=== PATIENT | male | born 1945 | race Caucasian/White ===

== ENCOUNTER 2020-04-10 10:10 | Emergency (ER) | payer MEDICARE, SELFPAY ==
[2020-04-10] VITALS (16 sets, daily range): BP systolic 98–124; BP diastolic 59–88; PULSE 57–62; RESP 12–28; TEMP 36.4; O2SAT 86–100
--- NOTE | ~2020-04-10 | XR_ITS ---
XR chest 1V portable DATE: 04/10/2020 10:52 INDICATION: Shortness of breath, cough, sore throat, body aches. Hypertension. TECHNIQUE: Portable AP chest on April 10, 2020 at 1042 hours COMPARISON: None FINDINGS: Heart size is normal. No hilar or mediastinal enlargement. No pulmonary vascular congestion or pleural effusion or pneumothorax. The lungs are clear of infiltrate or consolidation. IMPRESSION: No active cardiopulmonary disease Reviewed, dictated and finalized at location A. E CALLER
[2020-04-10 10:42] LABS: Basophils Percent Auto 0.3 % (0.2-1.2); Eosinophils Absolute Auto 0.1 K/mm3 (0-0.3); Eosinophils Percent Auto 0.7 % (0-4.4); Hematocrit 45.9 % (42.0-52.0); Hemoglobin 16.1 g/dL (14.0-18.0); Immature Granulocyte Absolute 0.06 K/mm3 (0.00-0.031); Immature Granulocyte Percent A 0.9 % (0-0.5); Lymphocytes Absolute Auto 0.89 K/mm3 (0.9-3.2); Lymphocytes Percent Auto 12.8 % (18.3-44.2); Mean Corpuscular HGB Conc 35.1 g/dl (32-36); Mean Corpuscular Hemoglobin 33.2 pg (26-34); Mean Corpuscular Volume 94.6 fl (80-100); Mean Platelet Volume 8.6 fl (7.4-10.4); Monocytes Absolute Auto 0.6 K/mm3 (0.1-0.6); Monocytes Percent Auto 8.5 % (2.6-8.5); Neutrophils Absolute Auto 5.4 K/mm3 (1.3-6.7); Neutrophils Percent Auto 76.8 % (45.5-73.1); Platelet Count Result 120 k/mm3 (150-375); Red Blood Count 4.85 M/mm3 (4.6-6.20); Red Cell Distribution Width 13.6 % (11.5-14.5)
[2020-04-10 11:01] LABS: Anion Gap 7 mmol/L (8-16); Blood Urea Nitrogen 34 mg/dL (9-20); Calcium 9.3 mg/dL (8.4-10.2); Carbon Dioxide 36 mmol/L (22-30); Chloride 92 mmol/L (98-107); Estimated CRCL calculation 31 ml/min; Estimated Glomerular Filt Rate 33; Glucose 166 mg/dL (75-110); Sodium 135 mmol/L (137-145)
--- NOTE | 2020-04-10 11:11 | ED.GENADULT ---
HPI - General Adult General Chief complaint: Upper Respiratory Infection <Nathan Llanes PA-C - Last Filed: 04/10/20 13:44> Stated complaint: SOB <Nathan Llanes PA-C - Last Filed: 04/10/20 13:44> Time Seen by Provider: 04/10/20 10:11 <Nathan Llanes PA-C - Last Filed: 04/10/20 13:44> Source: patient <Nathan Llanes PA-C - Last Filed: 04/10/20 13:44> Mode of arrival: ambulatory <Nathan Llanes PA-C - Last Filed: 04/10/20 13:44> Limitations: no limitations <Nathan Llanes PA-C - Last Filed: 04/10/20 13:44> History of Present Illness HPI narrative: Patient is a 74-year-old male who presents with multiple complaints over the last 4 days to include congestion cough that is nonproductive feeling more short of breath with activity and fatigue also noting that he has several days of diarrhea. Patient denies sick contacts. On arrival patient denies any pain. Patient denies fever vomiting rectal bleeding or melena or chest pain. Patient denies similar occurrence in the past <Ntahan Llanes PA-C - Last Filed: 04/10/20 13:44> Related Data Home medications: Home Medications Medication Instructions Recorded Confirmed hydrochlorothiazide 25 mg PO DAILY 04/10/20 04/10/20 losartan 100 mg PO DAILY 04/10/20 04/10/20 <Nathan Llanes PA-C - Last Filed: 04/10/20 13:44> Allergies/adverse reactions: Allergies Allergy/AdvReac Type Severity Reaction Status Date / Time formaldehyde Allergy Unknown Verified 04/10/20 10:17 Grass Allergy Unknown Rash Uncoded 04/10/20 10:17 <Nathan Llanes PA-C - Last Filed: 04/10/20 13:44> Review of Systems Review of Systems: All systems reviewed & are unremarkable except as noted in HPI and below <Nathan Llanes PA-C - Last Filed: 04/10/20 13:44> PMFSH Past Medical History Medical History: Medical History Allergies Atopic dermatitis CKD (chronic kidney disease) Deviated septum Hernia Hypertension Postherpetic neuralgia Shingles Type 2 diabetes mellitus <Nathan Llanes PA-C - Last Filed: 04/10/20 13:44> Surgical History Surgical History: Surgical History History of mandibular surgery 2012 <Nathan Llanes PA-C - Last Filed: 04/10/20 13:44> Family History Family History: Family History (Updated 04/07/19 @ 16:38 by Kiarra Knapp [facility]) Sibling Tonsil cancer Father Alcoholism <Nathan Llanes PA-C - Last Filed: 04/10/20 13:44> Social History Social History: Social History Smoking status: Former smoker Alcohol intake: never Gender identity (if verbalized by the patient): Male <Nathan Llanes PA-C - Last Filed: 04/10/20 13:44> Exam Narrative: Exam Narrative: GENERAL: Well-appearing, well-nourished, and in no acute distress. HEAD: Normocephalic, atraumatic. EYES: PERRLA and EOMI. ENT: Nares clear, no rhinorrhea or epistaxis. Mucous membranes moist. CHEST: Clear to auscultation. No respiratory distress. No wheezes rales or rhonchi HEART: Regular rate and rhythm. No murmur heard. Normal peripheral pulses. ABDOMEN: Soft, nontender, distended EXTREMITIES: Normal range of motion. No edema. SKIN: Warm, dry, no rash. NEURO: No focal deficits. Alert and oriented x3. Cranial nerves II through XII grossly intact PSYCH: Normal mood and affect. <Nathan Llanes PA-C - Last Filed: 04/10/20 13:44> Course Course Emergency Course: Patient evaluated in the emergency department for what is described as URI symptoms, patient was evaluated without any high risk changes in the blood work or imaging no pneumonia no hypoxemia was evaluated for pulmonary embolus acute coronary syndrome heart failure none of these appear to be the etiology of the patient's dyspnea and fatigue it is felt like the pat
[2020-04-10 11:17] LABS: INR 0.9; Prothrombin Time 12.3 Seconds (11.1-14.7)
[2020-04-10 11:18] LABS: Partial Thromboplastin Time 32.5 SECONDS (22.3-36.8)
[2020-04-10 11:20] LABS: D Dimer 0.32 ug/mL (<0.48)
[2020-04-10 11:43] LABS: Add Urine Microscopic? YES; Appearance Urine Clear (Clear); Bilirubin Urine Negative (Negative); Blood Urine Negative (Negative); Color Urine Yellow (Yellow); Glucose Urine UA 1+ mg/dL (Negative); Ketones Urine Negative (Negative); Leukocyte Esterase Ur Negative LEU/UL (Negative); Mucus Urine Rare /lpf; Nitrate Urine Negative (Negative); Protein Urine 1+ mg/dL (Negative); RBC Urine 0-2 /hpf (0-2); Specific Grav Ur 1.028 (1.001-1.035); Squamous Epithelial Cell Urine Rare /hpf (Few); Urobilinogen Urine Negative mg/dL (<2.0)
[2020-04-10 11:43] LABS: Lactic Acid Reflex 1.9 mmol/L (0.7-2.1)
[2020-04-10 11:46] LABS: CRP 4.3 mg/dL (<1.0)
[2020-04-10 11:56] LABS: NT Pro B Type Natriuretic Pept 298 PG/ML (5-100)
[2020-04-10 21:22] LABS: SARS-CoV-2 RNA PCR Positive
== END 2020-04-10 14:07 | disposition home or self-care (01) ==
PROVIDERS: Emergency Medicine Emergency Medical Services; Emergency Provider General Practice; PCP Internal Medicine
DX: U07.1 COVID-19 (principal); J06.9 Acute upper respiratory infection, unspecified; E11.22 Type 2 diabetes mellitus with diabetic chronic kidney disease; I12.9 Hypertensive chronic kidney disease with stage 1 through stage 4 chronic kidney disease, or unspecified chronic kidney disease; N18.9 Chronic kidney disease, unspecified; Z87.891 Personal history of nicotine dependence; R00.1 Bradycardia, unspecified; I44.4 Left anterior fascicular block; R94.31 Abnormal electrocardiogram [ECG] [EKG]
CPT/HCPCS: 36415; 71045; 80048; 81001; 83605; 83880; 84484; 85025; 85380; 85610; 85730; 86140; 87081; 87804; 87880; 93005; 99283; C9803; U0003; U0005

== ENCOUNTER 2020-04-13 11:55 | Inpatient (IN) | payer MEDICARE, SELFPAY ==
[2020-04-13] VITALS (11 sets, daily range): BP systolic 108–141; BP diastolic 66–81; PULSE 69–88; RESP 16–28; TEMP 36.6–37; O2SAT 93–96; BMI 28.6
--- NOTE | ~2020-04-13 | XR_ITS ---
EXAMINATION: XR chest 1V portable DATE: 04/13/2020 12:30 INDICATION: Shortness of breath and cough TECHNIQUE: frontal view of the chest was obtained. COMPARISON: Chest radiograph dated 04/10/2020 FINDINGS: Subtle patchy airspace opacities in the right suprahilar and infrahilar regions. Left lung remains cl ear. No pleural effusion or pneumothorax. The cardiomediastinal silhouette is normal. Mild degenerati ve skeletal changes in the thoracic spine and bilateral shoulders. IMPRESSION: 1. New subtle patchy opacities in the right suprahilar and infrahilar regions which could represent p neumonia or less likely asymmetric mild pulmonary edema. Reviewed, dictated and finalized at location A. BER WORKER IMPRESSION: 1. New subtle patchy opacities in the right suprahilar and infrahilar regions w hich could represent pneumonia or less likely asymmetric mild pulmonary edema.
--- NOTE | ~2020-04-13 | US_ITS ---
EXAMINATION: US venous doppler [facility] DATE: 04/18/2020 11:17 INDICATION: Shortness of breath. COVID positive. Elevated d-dimer. TECHNIQUE: Grayscale ultrasound images without and with compression and Doppler ultrasound images of the bilateral lower extremity veins were obtained. COMPARISON: None. FINDINGS: The visualized portions of right common femoral vein, profunda (deep) femoral vein, femoral vein, pop liteal vein, posterior tibial veins, peroneal veins, gastrocnemius vein and greater saphenous vein ou tflow are patent. The visualized portions of left common femoral vein, profunda femoral vein, femoral vein, popliteal v ein, posterior tibial veins, peroneal veins, gastrocnemius vein and greater saphenous vein outflow ar e patent. IMPRESSION: 1. No deep venous thrombosis in either lower limb. Reviewed, dictated and finalized at location A. GIVER
--- NOTE | 2020-04-13 12:03 | ECG_ITS ---
Measurements Intervals [place] Rate: 91 P: 19 [place]: 184 QRS: -51 QRSD: 96 T: -1 QT: 287 QTc: 354 Interpretive Statements SINUS RHYTHM LEFT ANTERIOR FASCICULAR BLOCK BORDERLINE T WAVE ABNORMALITY- INFERIOR LEADS BASELINE WANDER- I, AVR, V3-V5 ABNORMAL ECG Electronically Signed On 04-13-2020 13:12:39 MAILING MACHINE HELPER by Orlando Carcamo D.O.
[2020-04-13] MEDS: DEXAMETHASONE SOD PHOS INJ 4 MG/ML VIAL 6 MG IV PUSH (12:41)
[2020-04-13 12:45] LABS: Basophils Percent Auto 0.2 % (0.2-1.2); Hematocrit 39.8 % (42.0-52.0); Hemoglobin 14.4 g/dL (14.0-18.0); Immature Granulocyte Absolute 0.07 K/mm3 (0.00-0.031); Immature Granulocyte Percent A 0.8 % (0-0.5); Lymphocytes Absolute Auto 0.35 K/mm3 (0.9-3.2); Lymphocytes Percent Auto 4.1 % (18.3-44.2); Mean Corpuscular HGB Conc 36.2 g/dl (32-36); Mean Corpuscular Hemoglobin 33.3 pg (26-34); Mean Corpuscular Volume 91.9 fl (80-100); Mean Platelet Volume 8.7 fl (7.4-10.4); Monocytes Absolute Auto 0.2 K/mm3 (0.1-0.6); Monocytes Percent Auto 2.4 % (2.6-8.5); Neutrophils Percent Auto 92.5 % (45.5-73.1); Platelet Count Result 121 k/mm3 (150-375); Red Blood Count 4.33 M/mm3 (4.6-6.20); Red Cell Distribution Width 13.2 % (11.5-14.5); White Blood Count 8.6 K/mm3 (4.5-10.0)
[2020-04-13 13:07] LABS: Alanine Aminotransferase 33 U/L (4-50); Albumin Level 3.4 g/dL (3.5-5.1); Alkaline Phosphatase 43 U/L (38-126); Anion Gap 5 mmol/L (8-16); Aspartate Amino Transferase 47 U/L (17-59); Bilirubin,Total 1.3 mg/dL (0.2-1.3); Blood Urea Nitrogen 27 mg/dL (9-20); Calcium 8.9 mg/dL (8.4-10.2); Carbon Dioxide 33 mmol/L (22-30); Chloride 89 mmol/L (98-107); Estimated CRCL calculation 35 ml/min; Estimated Glomerular Filt Rate 37; Glucose 205 mg/dL (75-110); Potassium 2.7 mmol/L (3.4-5.0); Sodium 127 mmol/L (137-145)
[2020-04-13 13:12] LABS: Troponin I 0.062 ng/mL (0.000-0.034)
--- NOTE | 2020-04-13 14:26 | ED.SOB ---
HPI - SOB/Dyspnea General Chief Complaint: Shortness of Breath/Dyspnea Stated Complaint: SOB, COVID + Time Seen by Provider: 04/13/20 12:04 History of Present Illness HPI Narrative: Patient is a 74-year-old male who presents ER with increased shortness of breath. Patient began to feel bad about 6 days ago. He was seen 3 days ago and swabbed for Covid. It came back positive. He has been increasingly short of breath at home and his home pulse oximeter showed that he has been having O2 readings in the 80s. Reports extreme fatigue. Has cough when he tries to take a deep breath. He has been on no medications at home. EMS gave him Solu-Medrol in route. Related Data Home Medications Medication Instructions Recorded Confirmed hydrochlorothiazide 25 mg PO DAILY 04/10/20 04/13/20 losartan 100 mg PO DAILY 04/10/20 04/13/20 Allergies Allergy/AdvReac Type Severity Reaction Status Date / Time formaldehyde Allergy Unknown Verified 04/13/20 12:15 Grass Allergy Unknown Rash Uncoded 04/13/20 12:15 Review of Systems Review of Systems: All systems reviewed & are unremarkable except as noted in HPI and below Constitutional: Constitutional: Denies chills, Reports fatigue, Denies fever(s) and Reports weakness ENT: Denies nasal congestion and Denies sore throat Cardiovascular: Cardiovascular: Denies chest pain, Denies rapid heart rate and Denies radiating jaw, neck or arm pain Respiratory: Respiratory: Reports cough, Reports dyspnea and Reports wheezing Gastrointestinal: Gastrointestinal: Denies abdominal pain, Denies nausea and Denies vomiting Musculoskeletal: Musculoskeletal: Denies back pain and Denies muscle cramps PMF Past Medical History Medical History Allergies Atopic dermatitis CKD (chronic kidney disease) Deviated septum Hernia Hypertension Postherpetic neuralgia Shingles Type 2 diabetes mellitus Surgical History Surgical History History of mandibular surgery 2012 Family History Family History (Updated 04/07/19 @ 16:38 by Kiarra Knapp [facility]) Sibling Tonsil cancer Father Alcoholism Social History Social History Smoking status: Former smoker Alcohol intake: never Gender identity (if verbalized by the patient): Male Exam Narrative: Exam Narrative: GENERAL: Well-appearing, well-nourished, and in no acute distress. HEAD: Normocephalic, atraumatic. CHEST: Clear to auscultation. No respiratory distress. Frequent coughing. HEART: Regular rate and rhythm. Normal peripheral pulses. ABDOMEN: Soft, nontender, nondistended. EXTREMITIES: Normal range of motion. No edema. SKIN: Warm, dry, no rash. NEURO: Alert and oriented x3. PSYCH: Normal mood and affect. Course Course Emergency Course: Admit to hospitalist service for hypoxia and Covid. Evidence of Covid pneumonia on chest x-ray. Patient given dexamethasone. Potassium infusion started for hypokalemia. Vital Signs Vital signs: Vital Signs Temperature 98.4 F 04/13/20 12:09 Pulse Rate 88 04/13/20 12:09 Respiratory Rate 24 H 04/13/20 12:09 Blood Pressure 108/79 04/13/20 12:09 Pulse Oximetry 95 04/13/20 12:09 Temperature 98.4 F 04/13/20 12:09 Pulse Rate 69 04/13/20 16:22 Respiratory Rate 20 04/13/20 16:22 Blood Pressure 132/74 04/13/20 16:22 Pulse Oximetry 96 04/13/20 16:22 MDM - SOB/Dyspnea Lab Data Result diagrams: 04/13/20 12:39 04/13/20 12:39 Labs: Lab Results 04/13/20 04/13/20 Range/Units 12:39 12:39 WBC 8.6 (4.5-10.0) K/mm3 RBC 4.33 L (4.6-6.20) M/mm3 Hgb 14.4 (14.0-18.0) g/dL Hct 39.8 L (42.0-52.0) % MCV 91.9 (80-100) fl MCH 33.3 (26-34) pg MCHC 36.2 H (32-36) g/dl RDW 13.2 (11.5-14.5) % Plt Count 121 L (150-375) k/mm3 MPV 8.7 (7.4-10.4) fl
--- NOTE | 2020-04-13 17:07 | ADMGEN ---
This patient, Lennox Calvo, was admitted to Intensive Care Unit-6. Patient/family oriented to hospital policies and general routines including ID bracelet, bed and alarms, visiting hours, pain management, procedures, bathroom and other care routines, personal items, smoking policy, room service/diet, and visiting hours. Information on how to activate the Rapid Response Team has been discussed. Patient/Family are encouraged to report perceived risks to care and to ask questions if they do not understand what they are told or what they should do.
[2020-04-13] MEDS: SODIUM CHLORIDE 0.9% IV 1,000 ML 125 ML IV CONT (18:18)
--- NOTE | 2020-04-13 18:24 | ADMIMU ---
This patient, Lennox Calvo, was admitted to IMU status, and placed in Intensive Care Unit-6. Patient/family oriented to hospital policies and general routines including ID bracelet, bed and alarms, visiting hours, pain management, procedures, bathroom and other care routines, personal items, smoking policy, room service/diet, and visiting hours. Valuables list has been completed. Information on how to activate the Rapid Response Team has been discussed. Patient/Family are encouraged to report perceived risks to care and to ask questions if they do not understand what they are told or what they should do.
[2020-04-13 21:44] LABS: Glucose Point of Care 334 (65-105)
[2020-04-13] MEDS: CALCIUM CARBONATE (TUMS) 500 MG (200 MG ELEMENTAL) PO (22:19)
[2020-04-13] MEDS: INSULIN ASPART (*BKC) 100 UNITS/ML 6 UNITS SUB-Q (22:19)
--- NOTE | 2020-04-13 23:19 | PM.IMHP ---
H&P: HPI History of Present Illness Date/Time: 04/13/20 23:19 Chief Complaint: shortness of breath Narrative: This is a 74 year old Diabetic male with known history of chronic HTN and CKD who presented to the hospital with a complaint of worsening shortness of breath. The patient states that he has had COVID-19 symptoms for almost two weeks now. At home he has had increased exertional shortness of breath and has a nonproductive cough. He denies any chest pain, fevers, chills, headache, wheezing, abdominal pain, dysuria, hematuria, nausea, vomiting, or rectal bleeding. The patient was evaluated in the ER today was placed on supplemental oxygen despite not being hypoxic. Apparently he had pulse oximetry readings in the 80s at home. The patient was also incidentally found to have a mildly elevated troponin of 0.062. Routine labs also showed a mild potassium of 2.7. He has his potassium replaced in the ER. The patient was admitted to the hospital for further care. He states that he feels much better now. No other complaints. Review of Systems Review of Systems: All systems reviewed & are unremarkable except as noted in HPI and below PMFSH Past Medical History Medical History Allergies Atopic dermatitis CKD (chronic kidney disease) Deviated septum Hernia Hypertension Postherpetic neuralgia Shingles Type 2 diabetes mellitus Surgical History Surgical History History of mandibular surgery 2012 Family History Family History Sibling Tonsil cancer Father Alcoholism Social History Social History Smoking status: Former smoker Tobacco type: cigarettes Alcohol intake: never Substance use: never Substance use type: does not use Gender identity (if verbalized by the patient): Male Sexual Orientation (if Verbalized by the Patient): Straight or Heterosexual Spiritual care concerns: No Meds Home Medications and Allergies Home Medications Medication Instructions Recorded Confirmed Type atenolol 25 mg tablet 25 mg PO DAILY #90 tablet 01/27/20 04/13/20 Rx albuterol sulfate 2 puff INHALATION QID PRN #6.7 g 04/10/20 04/13/20 Rx famotidine [Pepcid] 20 mg PO BID #14 tablet 04/10/20 04/13/20 Rx fluticasone furoate [Flonase 2 spray INTRANASAL DAILY #5.9 ml 04/10/20 04/13/20 Rx Sensimist] hydrochlorothiazide 25 mg PO DAILY 04/10/20 04/13/20 History loratadine [Claritin] 10 mg PO DAILY PRN #10 tablet 04/10/20 04/13/20 Rx losartan 100 mg PO DAILY 04/10/20 04/13/20 History Allergies Allergy/AdvReac Type Severity Reaction Status Date / Time formaldehyde Allergy Unknown Verified 04/13/20 12:15 Grass Allergy Unknown Rash Uncoded 04/13/20 12:15 Vital Signs Vital Signs - 24 hr 04/13/20 12:09 04/13/20 12:43 04/13/20 13:21 Temperature 36.9 C Pulse Rate 88 86 78 Respiratory Rate 24 H 26 H 28 H Blood Pressure 108/79 126/66 141/74 H Pulse Oximetry 95 96 94 04/13/20 14:14 04/13/20 14:45 04/13/20 15:30 Temperature Pulse Rate 79 72 76 Respiratory Rate 26 H 16 18 Blood Pressure 127/74 128/74 131/81 Pulse Oximetry 95 94 94 04/13/20 16:22 04/13/20 17:00 04/13/20 18:00 Temperature 36.6 C Pulse Rate 69 71 74 Respiratory Rate 20 28 H Blood Pressure 132/74 123/77 Pulse Oximetry 96 95 04/13/20 20:00 Temperature 37.0 C Pulse Rate 76 Respiratory Rate 25 H Blood Pressure 122/75 Pulse Oximetry 93 Exam Const: General: no acute distress, alert, awake and other (On 2L of supplemental oxygen via NC. ) Nutritional Appearance: well nourished Orientation/consciousness: patient oriented x3 HENMT: Head: normal to inspection General nose exam: Normal external nose present Face and sinus: normal facial exam Mouth: Yes Normal oral and palatal mucosa present and Yes orophar
[2020-04-13 23:34] LABS: Troponin I 0.034 ng/mL (0.000-0.034)
[2020-04-13 23:40] LABS: Anion Gap 7 mmol/L (8-16); Blood Urea Nitrogen 29 mg/dL (9-20); Calcium 8.7 mg/dL (8.4-10.2); Carbon Dioxide 31 mmol/L (22-30); Chloride 91 mmol/L (98-107); Estimated CRCL calculation 37 ml/min; Estimated Glomerular Filt Rate 46; Glucose 320 mg/dL (75-110); Magnesium 1.9 mg/dL (1.6-2.3); Potassium 3.3 mmol/L (3.4-5.0); Sodium 129 mmol/L (137-145)
[2020-04-14] VITALS (19 sets, daily range): BP systolic 100–117; BP diastolic 54–84; PULSE 54–81; RESP 18–35; TEMP 36.6–38.5; O2SAT 90–95
[2020-04-14 00:44] LABS: Glucose Point of Care 262 (65-105)
[2020-04-14] MEDS: SODIUM CHLORIDE 0.9% IV 1,000 ML 125 ML IV CONT ×3 (02:12→17:42)
[2020-04-14] MEDS: ACETAMINOPHEN 325 MG TABLET 650 MG PO ×2 (02:19→23:57)
[2020-04-14] MEDS: ALBUTEROL SULFATE (*SP) AEROSOL 1 PUFF 2 PUFF INHALATION ×4 (02:39→20:49)
[2020-04-14 05:24] LABS: Basophils Percent Auto 0.3 % (0.2-1.2); Eosinophils Absolute Auto 0.1 K/mm3 (0-0.3); Eosinophils Percent Auto 0.5 % (0-4.4); Hematocrit 38.6 % (42.0-52.0); Hemoglobin 13.8 g/dL (14.0-18.0); Immature Granulocyte Absolute 0.14 K/mm3 (0.00-0.031); Immature Granulocyte Percent A 1.2 % (0-0.5); Lymphocytes Absolute Auto 0.43 K/mm3 (0.9-3.2); Lymphocytes Percent Auto 3.6 % (18.3-44.2); Mean Corpuscular HGB Conc 35.8 g/dl (32-36); Mean Corpuscular Hemoglobin 33.1 pg (26-34); Mean Corpuscular Volume 92.6 fl (80-100); Mean Platelet Volume 8.9 fl (7.4-10.4); Monocytes Absolute Auto 0.3 K/mm3 (0.1-0.6); Monocytes Percent Auto 2.7 % (2.6-8.5); Neutrophils Absolute Auto 10.8 K/mm3 (1.3-6.7); Neutrophils Percent Auto 91.7 % (45.5-73.1); Platelet Count Result 131 k/mm3 (150-375); Red Blood Count 4.17 M/mm3 (4.6-6.20); Red Cell Distribution Width 13.2 % (11.5-14.5); White Blood Count 11.8 K/mm3 (4.5-10.0)
[2020-04-14 05:36] LABS: Hemoglobin A1C 7.2 % (<5.7)
[2020-04-14 05:38] LABS: Anion Gap 6 mmol/L (8-16); Blood Urea Nitrogen 28 mg/dL (9-20); Calcium 8.6 mg/dL (8.4-10.2); Carbon Dioxide 32 mmol/L (22-30); Chloride 94 mmol/L (98-107); Estimated CRCL calculation 39 ml/min; Estimated Glomerular Filt Rate 42; Glucose 208 mg/dL (75-110); Potassium 2.8 mmol/L (3.4-5.0); Sodium 132 mmol/L (137-145)
[2020-04-14] MEDS: hydroCHLOROthiazide 25 MG TABLET PO (08:25)
[2020-04-14] MEDS: FAMOTIDINE 20 MG TABLET PO ×2 (08:25→17:44)
[2020-04-14] MEDS: atenoloL 25 MG TABLET PO (08:25)
[2020-04-14] MEDS: LOSARTAN POTASSIUM 50 MG TABLET 100 MG PO (08:26)
[2020-04-14] MEDS: ENOXAPARIN 40 MG/0.4 ML SYRINGE SUB-Q (08:27)
[2020-04-14] MEDS: DEXAMETHASONE SOD PHOS INJ 4 MG/ML VIAL 6 MG IV PUSH (08:27)
[2020-04-14] MEDS: INSULIN ASPART (*BKC) 100 UNITS/ML SUB-Q ×3 (08:28→17:39)
[2020-04-14 08:47] LABS: Glucose Point of Care 236 (65-105)
[2020-04-14 12:07] LABS: Glucose Point of Care 380 (65-105)
[2020-04-14 12:23] LABS: Magnesium 1.9 mg/dL (1.6-2.3)
[2020-04-14 12:25] LABS: Albumin Level 3.1 g/dL (3.5-5.1); Alkaline Phosphatase 38 U/L (38-126); Anion Gap 8 mmol/L (8-16); Aspartate Amino Transferase 40 U/L (17-59); Bilirubin,Total 0.8 mg/dL (0.2-1.3); Blood Urea Nitrogen 28 mg/dL (9-20); Calcium 7.9 mg/dL (8.4-10.2); Carbon Dioxide 29 mmol/L (22-30); Chloride 95 mmol/L (98-107); Estimated CRCL calculation 39 ml/min; Estimated Glomerular Filt Rate 42; Glucose 356 mg/dL (75-110); Potassium 3.7 mmol/L (3.4-5.0); Sodium 132 mmol/L (137-145)
[2020-04-14 12:34] LABS: Alanine Aminotransferase 32 U/L (4-50)
[2020-04-14] MEDS: ZINC SULFATE 220 MG CAPSULE PO (13:47)
[2020-04-14] MEDS: CHOLECALCIFEROL 1,000 UNITS TABLET 1000 UNITS PO (13:47)
[2020-04-14] MEDS: ASCORBIC ACID 500 MG TABLET PO (13:47)
[2020-04-14] MEDS: SODIUM CHLORIDE 0.9% IV 250 ML 30 ML IV CONT (15:10)
--- NOTE | 2020-04-14 16:31 | PM.IMPN ---
Progress Note: A&P Assessment and Plan (1) Pneumonia due to 2019-nCoV: Code(s): U07.1 - COVID-19; J12.82 - Pneumonia due to coronavirus disease 2019 Status: Acute Assessment and Plan: The patient has been admitted to IMU, telemetry, The patient is currently on 2L of supplemental oxygen but likely does not need any supplemental oxygen as he is not desaturating. Wean off as tolerated. Continue Bronchodilators scheduled and PRN. Continue Decadron. Supportive care. droplet isolation. 04/14/20 16:31 Patient is 74-year-old male presented emergency department with complaint of shortness of breath, worse with exertion patient was diagnosed with COVID-19 on 04/10 however patient stated his symptoms were persistent for 2 weeks now and his is also positive COVID-19, patient was hypoxic in the emergency department and was placed on oxygen however currently is on room air, emergency depart patient was started on dexamethasone / added plasma, vitamin-C vitamin-D and zinc, patient is not a candidate for remdesivir as patient creatinine is elevated, will continue to monitor, the PT OT evaluate the patient, as patient remains on room air and no fever for 2-3 days we may discharge the patient home. (2) Hypokalemia: Code(s): E87.6 - Hypokalemia Status: Acute Assessment and Plan: Check BMP and magnesium now. Monitor serum potassium. Consider further replacement as needed. (3) Elevated troponin: Code(s): R77.8 - Other specified abnormalities of plasma proteins Status: Acute Assessment and Plan: Incidental troponin rise may be secondary to COVID-19. No chest pain tongiht. Trend troponin. Consider Cardiology consultation in am . (4) Thrombocytopenia: Code(s): D69.6 - Thrombocytopenia, unspecified Status: Acute Assessment and Plan: Monitor platelets, transfuse prn. (5) Type 2 diabetes mellitus: Qualifiers: Diabetes mellitus group home insulin use: without manager long term care use Diabetes mellitus complication status: with kidney complications Diabetes mellitus complication detail: with chronic kidney disease Chronic kidney disease stage: unspecified stage Qualified Code(s): E11.22 - Type 2 diabetes mellitus with diabetic chronic kidney disease Code(s): E11.9 - Type 2 diabetes mellitus without complications Status: Chronic Assessment and Plan: Accuchecks, SSI Coverage, hypoglycemic protocol. (6) Hypertension: Qualifiers: Hypertension type: essential hypertension Qualified Code(s): I10 - Essential (primary) hypertension Code(s): I10 - Essential (primary) hypertension Status: Chronic Assessment and Plan: stable. Monitor blood pressure. Continue home antihypertensives. (7) CKD (chronic kidney disease): Qualifiers: Chronic kidney disease stage: stage 3 (moderate) Qualified Code(s): N18.3 - Chronic kidney disease, stage 3 (moderate) Code(s): N18.9 - Chronic kidney disease, unspecified Status: Chronic Assessment and Plan: Renal function appears to be at baseline. Monitor renal function. Avoid nephrotoxic agents, renally dose medications. Subjective Date/time seen: 04/14/20 16:31 Patient is 74-year-old male presented emergency department with complaint of shortness of breath, worse with exertion patient was diagnosed with COVID-19 on 04/10 however patient stated his symptoms were persistent for 2 weeks now and his is also positive COVID-19, patient was hypoxic in the emergency department and was placed on oxygen however currently is on room air, emergency depart patient was started on dexamethasone 03/06 added plasma, vitamin-C vitamin-D and zinc, patient is not a candidate for remdesivir as patient creatinine is elevated, will continue to monitor, the PT OT evaluate the patient, as patient remains on room air and no fever for 2-3 days we may discharge the patient home. Review of Systems Rev
[2020-04-14] MEDS: POTASSIUM CHLORIDE 20 MEQ TABLET 40 MEQ PO (17:46)
[2020-04-14 17:55] LABS: Glucose Point of Care 388 (65-105)
[2020-04-14 21:08] LABS: Glucose Point of Care 151 (65-105)
--- NOTE | 2020-04-14 23:43 | PC.NURSE ---
Discussed proning with patient. Patient states he can not sleep in stomach but will try his side.
[2020-04-14] MEDS: guaiFENesin 600 MG/DEXTROMETHORPHAN 30 MG SR TAB 12 HR 1 TAB PO (23:57)
[2020-04-15] VITALS (10 sets, daily range): BP systolic 122–129; BP diastolic 62–73; PULSE 53–68; RESP 20–29; TEMP 36.6–38.5; O2SAT 93–100
[2020-04-15] MEDS: SODIUM CHLORIDE 0.9% IV 1,000 ML 125 ML IV CONT ×3 (01:42→18:24)
[2020-04-15 05:32] LABS: Hematocrit 36.9 % (42.0-52.0); Hemoglobin 12.8 g/dL (14.0-18.0); Mean Corpuscular HGB Conc 34.7 g/dl (32-36); Mean Corpuscular Hemoglobin 32.8 pg (26-34); Mean Corpuscular Volume 94.6 fl (80-100); Mean Platelet Volume 8.8 fl (7.4-10.4); Platelet Count Result 181 k/mm3 (150-375); Red Cell Distribution Width 13.5 % (11.5-14.5); White Blood Count 14.2 K/mm3 (4.5-10.0)
[2020-04-15 05:51] LABS: Alanine Aminotransferase 31 U/L (4-50); Alkaline Phosphatase 36 U/L (38-126); Anion Gap 3 mmol/L (8-16); Aspartate Amino Transferase 42 U/L (17-59); Bilirubin,Total 0.9 mg/dL (0.2-1.3); Blood Urea Nitrogen 27 mg/dL (9-20); Calcium 7.9 mg/dL (8.4-10.2); Carbon Dioxide 31 mmol/L (22-30); Chloride 101 mmol/L (98-107); Estimated CRCL calculation 39 ml/min; Estimated Glomerular Filt Rate 42; Glucose 153 mg/dL (75-110); Potassium 3.5 mmol/L (3.4-5.0); Sodium 135 mmol/L (137-145)
[2020-04-15 06:01] LABS: CRP 13.1 mg/dL (<1.0)
[2020-04-15] MEDS: ENOXAPARIN 40 MG/0.4 ML SYRINGE SUB-Q (08:06)
[2020-04-15] MEDS: LOSARTAN POTASSIUM 50 MG TABLET 100 MG PO (08:06)
[2020-04-15] MEDS: ZINC SULFATE 220 MG CAPSULE PO (08:06)
[2020-04-15] MEDS: ASCORBIC ACID 500 MG TABLET PO (08:06)
[2020-04-15] MEDS: DEXAMETHASONE SOD PHOS INJ 4 MG/ML VIAL 6 MG IV PUSH (08:06)
[2020-04-15] MEDS: FLUTICASONE PROPIONATE 0.05% NA SPR 16 GM BTL (*BKC) 2 SPRAY NASAL (08:06)
[2020-04-15] MEDS: hydroCHLOROthiazide 25 MG TABLET PO (08:06)
[2020-04-15] MEDS: CHOLECALCIFEROL 1,000 UNITS TABLET 1000 UNITS PO (08:07)
[2020-04-15] MEDS: FAMOTIDINE 20 MG TABLET PO ×2 (08:07→18:18)
[2020-04-15] MEDS: guaiFENesin 600 MG/DEXTROMETHORPHAN 30 MG SR TAB 12 HR 1 TAB PO ×2 (08:07→21:29)
[2020-04-15] MEDS: atenoloL 25 MG TABLET PO (08:07)
[2020-04-15] MEDS: ACETAMINOPHEN 325 MG TABLET 650 MG PO (09:03)
[2020-04-15] MEDS: POTASSIUM CHLORIDE 20 MEQ TABLET 40 MEQ PO (09:13)
[2020-04-15 13:19] LABS: Glucose Point of Care 194 (65-105)
[2020-04-15] MEDS: ALBUTEROL SULFATE (*SP) AEROSOL 1 PUFF 2 PUFF INHALATION ×2 (13:42→21:29)
--- NOTE | 2020-04-15 13:42 | PC.NURSE ---
This patient, Lennox Calvo, was transferred to [[id number] ] on 04/15/20 at 1342. Personal belongings sent with patient. Report given to [YAZMIN Mitchell @ 1300]. Appropriate documentation sent with patient. Home medications sent home with daughter. Clothes placed in closet
--- NOTE | 2020-04-15 13:47 | PM.IMPN ---
Progress Note: A&P Assessment and Plan (1) Pneumonia due to 2019-nCoV: Code(s): U07.1 - COVID-19; J12.82 - Pneumonia due to coronavirus disease 2019 Status: Acute Assessment and Plan: The patient has been admitted to IMU, telemetry, The patient is currently on 2L of supplemental oxygen but likely does not need any supplemental oxygen as he is not desaturating. Wean off as tolerated. Continue Bronchodilators scheduled and PRN. Continue Decadron. Supportive care. droplet isolation. 04/15/20 13:47 Patient is 74-year-old male presented emergency department with complaint of shortness of breath, worse with exertion patient was diagnosed with COVID-19 on 04/10 however patient stated his symptoms were persistent for 2 weeks now and his is also positive COVID-19, patient was hypoxic in the emergency department and was placed on oxygen however currently is on room air, emergency depart patient was started on dexamethasone 03/06 added plasma, vitamin-C vitamin-D and zinc, patient is not a candidate for remdesivir as patient creatinine is elevated, will continue to monitor, the PT OT evaluate the patient, as patient remains on room air and no fever for 2-3 days we may discharge the patient home. 04/15 today patient is sitting in the chair stats doing better he is on 2 L NC, he has not had any fever since arrival, he received plasma on 04/14 and dexamethasone 04/06, vitamin-C and D and zinc, will continue to monitor, if patient remains afebrile not requiring more than 6 L of oxygen next 2-3 days will do the discharge planning, I spoke with patient's daughter and answered all her questions, patient has hyperglycemia will do the A1c to further evaluate (2) Hypokalemia: Code(s): E87.6 - Hypokalemia Status: Acute Assessment and Plan: Check BMP and magnesium now. Monitor serum potassium. Consider further replacement as needed. (3) Elevated troponin: Code(s): R77.8 - Other specified abnormalities of plasma proteins Status: Acute Assessment and Plan: Incidental troponin rise may be secondary to COVID-19. No chest pain tongiht. Trend troponin. Consider Cardiology consultation in am . (4) Thrombocytopenia: Code(s): D69.6 - Thrombocytopenia, unspecified Status: Acute Assessment and Plan: Monitor platelets, transfuse prn. (5) Type 2 diabetes mellitus: Qualifiers: Diabetes mellitus stripper apprentice insulin use: without nursing home use Diabetes mellitus complication status: with kidney complications Diabetes mellitus complication detail: with chronic kidney disease Chronic kidney disease stage: unspecified stage Qualified Code(s): E11.22 - Type 2 diabetes mellitus with diabetic chronic kidney disease Code(s): E11.9 - Type 2 diabetes mellitus without complications Status: Chronic Assessment and Plan: Accuchecks, SSI Coverage, hypoglycemic protocol. (6) Hypertension: Qualifiers: Hypertension type: essential hypertension Qualified Code(s): I10 - Essential (primary) hypertension Code(s): I10 - Essential (primary) hypertension Status: Chronic Assessment and Plan: stable. Monitor blood pressure. Continue home antihypertensives. (7) CKD (chronic kidney disease): Qualifiers: Chronic kidney disease stage: stage 3 (moderate) Qualified Code(s): N18.3 - Chronic kidney disease, stage 3 (moderate) Code(s): N18.9 - Chronic kidney disease, unspecified Status: Chronic Assessment and Plan: Renal function appears to be at baseline. Monitor renal function. Avoid nephrotoxic agents, renally dose medications. Subjective Date/time seen: 04/15/20 13:47 Patient is 74-year-old male presented emergency department with complaint of shortness of breath, worse with exertion patient was diagnosed with COVID-19 on 04/10 however patient stated his symptoms were persistent for 2 weeks now and his is also positive COVID-19, p
--- NOTE | 2020-04-15 13:59 | PC.NURSE ---
patient transferred to room 327 per w/c at 1330. on 3L oxygen NC. IVF running
[2020-04-15 17:36] LABS: Glucose Point of Care 266 (65-105)
[2020-04-15] MEDS: INSULIN ASPART (*BKC) 100 UNITS/ML SUB-Q (18:23)
[2020-04-15 21:42] LABS: Glucose Point of Care 165 (65-105)
[2020-04-16] VITALS (14 sets, daily range): BP systolic 118–134; BP diastolic 63–78; PULSE 59–71; RESP 18–20; TEMP 36.2–37.1; O2SAT 83–95
[2020-04-16] MEDS: ALBUTEROL SULFATE (*SP) AEROSOL 1 PUFF 2 PUFF INHALATION ×4 (01:34→20:24)
[2020-04-16] MEDS: SODIUM CHLORIDE 0.9% IV 1,000 ML 125 ML IV CONT ×3 (02:35→20:24)
[2020-04-16] MEDS: WATER FOR IRRIGATION, STERILE 1,000 ML BOTTLE 1000 ML (02:46)
[2020-04-16 07:36] LABS: Hematocrit 38.2 % (42.0-52.0); Hemoglobin 13.2 g/dL (14.0-18.0); Mean Corpuscular HGB Conc 34.6 g/dl (32-36); Mean Corpuscular Hemoglobin 32.8 pg (26-34); Mean Platelet Volume 8.6 fl (7.4-10.4); Platelet Count Result 212 k/mm3 (150-375); Red Blood Count 4.02 M/mm3 (4.6-6.20); Red Cell Distribution Width 13.5 % (11.5-14.5); White Blood Count 11.3 K/mm3 (4.5-10.0)
[2020-04-16 07:41] LABS: Alanine Aminotransferase 32 U/L (4-50); Albumin Level 2.9 g/dL (3.5-5.1); Alkaline Phosphatase 43 U/L (38-126); Anion Gap 6 mmol/L (8-16); Aspartate Amino Transferase 37 U/L (17-59); Bilirubin,Total 0.7 mg/dL (0.2-1.3); Blood Urea Nitrogen 24 mg/dL (9-20); CRP 7.2 mg/dL (<1.0); Calcium 7.5 mg/dL (8.4-10.2); Carbon Dioxide 27 mmol/L (22-30); Chloride 105 mmol/L (98-107); Estimated CRCL calculation 44 ml/min; Estimated Glomerular Filt Rate 49; Glucose 143 mg/dL (75-110); Potassium 3.4 mmol/L (3.4-5.0); Sodium 138 mmol/L (137-145)
[2020-04-16 08:05] LABS: Hemoglobin A1C 7.3 % (<5.7)
[2020-04-16] MEDS: DEXAMETHASONE SOD PHOS INJ 4 MG/ML VIAL 6 MG IV PUSH (08:08)
[2020-04-16] MEDS: ENOXAPARIN 40 MG/0.4 ML SYRINGE SUB-Q (08:08)
[2020-04-16] MEDS: FAMOTIDINE 20 MG TABLET PO ×2 (08:08→17:27)
[2020-04-16] MEDS: hydroCHLOROthiazide 25 MG TABLET PO (08:08)
[2020-04-16] MEDS: atenoloL 25 MG TABLET PO (08:09)
[2020-04-16] MEDS: ZINC SULFATE 220 MG CAPSULE PO (08:09)
[2020-04-16] MEDS: LOSARTAN POTASSIUM 50 MG TABLET 100 MG PO (08:09)
[2020-04-16] MEDS: guaiFENesin 600 MG/DEXTROMETHORPHAN 30 MG SR TAB 12 HR 1 TAB PO ×2 (08:09→20:23)
[2020-04-16] MEDS: CHOLECALCIFEROL 1,000 UNITS TABLET 1000 UNITS PO (08:09)
[2020-04-16] MEDS: ASCORBIC ACID 500 MG TABLET PO (08:09)
[2020-04-16] MEDS: FLUTICASONE PROPIONATE 0.05% NA SPR 16 GM BTL (*BKC) 2 SPRAY NASAL (08:09)
[2020-04-16 10:04] LABS: Glucose Point of Care 131 (65-105)
[2020-04-16] MEDS: POTASSIUM CHLORIDE 20 MEQ TABLET 40 MEQ PO (11:47)
[2020-04-16 12:16] LABS: Glucose Point of Care 227 (65-105)
--- NOTE | 2020-04-16 14:34 | PM.IMPN ---
Progress Note: A&P Assessment and Plan (1) Pneumonia due to 2019-nCoV: Code(s): U07.1 - COVID-19; J12.82 - Pneumonia due to coronavirus disease 2019 Status: Acute Assessment and Plan: The patient has been admitted to IMU, telemetry, The patient is currently on 2L of supplemental oxygen but likely does not need any supplemental oxygen as he is not desaturating. Wean off as tolerated. Continue Bronchodilators scheduled and PRN. Continue Decadron. Supportive care. droplet isolation. 04/16/20 14:34 Patient is 74-year-old male presented emergency department with complaint of shortness of breath, worse with exertion patient was diagnosed with COVID-19 on 04/10 however patient stated his symptoms were persistent for 2 weeks now and his is also positive COVID-19, patient was hypoxic in the emergency department and was placed on oxygen however currently is on room air, emergency depart patient was started on dexamethasone 03/06 added plasma, vitamin-C vitamin-D and zinc, patient is not a candidate for remdesivir as patient creatinine is elevated, will continue to monitor, the PT OT evaluate the patient, as patient remains on room air and no fever for 2-3 days we may discharge the patient home. 04/15 today patient is sitting in the chair stats doing better he is on 2 L NC, he has not had any fever since arrival, he received plasma on 04/14 and dexamethasone 04/06, vitamin-C and D and zinc, will continue to monitor, if patient remains afebrile not requiring more than 6 L of oxygen next 2-3 days will do the discharge planning, I spoke with patient's daughter and answered all her questions, patient has hyperglycemia will do the A1c to further evaluate 04/16 today patient is lying in the bed does complaint of little bit of short of breath also is requiring 3-4 L of oxygen, he denies any fever or chills he is on dexamethasone 05/04, received convalescent plasma on 04/14, and vitamin-C and D as well as zinc, patient hemoglobin A1c is 7.3 patient is on dexamethasone will closely monitor patient blood sugars, will continue to monitor the patient will have a PT OT evaluate the patient and further recommendation to follow (2) Hypokalemia: Code(s): E87.6 - Hypokalemia Status: Acute Assessment and Plan: Check BMP and magnesium now. Monitor serum potassium. Consider further replacement as needed. (3) Elevated troponin: Code(s): R77.8 - Other specified abnormalities of plasma proteins Status: Acute Assessment and Plan: Incidental troponin rise may be secondary to COVID-19. No chest pain tongiht. Trend troponin. Consider Cardiology consultation in am . (4) Thrombocytopenia: Code(s): D69.6 - Thrombocytopenia, unspecified Status: Acute Assessment and Plan: Monitor platelets, transfuse prn. (5) Type 2 diabetes mellitus: Qualifiers: Diabetes mellitus fdc insulin use: without extermination supervisor use Diabetes mellitus complication status: with kidney complications Diabetes mellitus complication detail: with chronic kidney disease Chronic kidney disease stage: unspecified stage Qualified Code(s): E11.22 - Type 2 diabetes mellitus with diabetic chronic kidney disease Code(s): E11.9 - Type 2 diabetes mellitus without complications Status: Chronic Assessment and Plan: Accuchecks, SSI Coverage, hypoglycemic protocol. (6) Hypertension: Qualifiers: Hypertension type: essential hypertension Qualified Code(s): I10 - Essential (primary) hypertension Code(s): I10 - Essential (primary) hypertension Status: Chronic Assessment and Plan: stable. Monitor blood pressure. Continue home antihypertensives. (7) CKD (chronic kidney disease): Qualifiers: Chronic kidney disease stage: stage 3 (moderate) Qualified Code(s): N18.3 - Chronic kidney disease, stage 3 (moderate) Code(s): N18.9 - Chronic kidney disease, unspecified Status:
[2020-04-16 17:44] LABS: Glucose Point of Care 162 (65-105)
[2020-04-16 21:20] LABS: Glucose Point of Care 174 (65-105)
[2020-04-17] VITALS (10 sets, daily range): BP systolic 123–139; BP diastolic 59–74; PULSE 55–69; RESP 20–22; TEMP 36.2–36.8; O2SAT 87–97
[2020-04-17] MEDS: SODIUM CHLORIDE 0.9% IV 1,000 ML 125 ML IV CONT ×3 (04:02→21:36)
[2020-04-17] MEDS: ALBUTEROL SULFATE (*SP) AEROSOL 1 PUFF 2 PUFF INHALATION ×3 (04:02→14:30)
[2020-04-17 06:40] LABS: Hemoglobin 12.9 g/dL (14.0-18.0); Mean Corpuscular HGB Conc 33.9 g/dl (32-36); Mean Corpuscular Hemoglobin 32.6 pg (26-34); Mean Platelet Volume 8.3 fl (7.4-10.4); Platelet Count Result 225 k/mm3 (150-375); Red Blood Count 3.96 M/mm3 (4.6-6.20); Red Cell Distribution Width 13.7 % (11.5-14.5); White Blood Count 10.5 K/mm3 (4.5-10.0)
[2020-04-17 06:59] LABS: Alanine Aminotransferase 36 U/L (4-50); Albumin Level 2.9 g/dL (3.5-5.1); Alkaline Phosphatase 41 U/L (38-126); Anion Gap 1 mmol/L (8-16); Aspartate Amino Transferase 38 U/L (17-59); Bilirubin,Total 0.9 mg/dL (0.2-1.3); Blood Urea Nitrogen 24 mg/dL (9-20); CRP 6.1 mg/dL (<1.0); Calcium 7.6 mg/dL (8.4-10.2); Carbon Dioxide 32 mmol/L (22-30); Chloride 104 mmol/L (98-107); Estimated CRCL calculation 47 ml/min; Estimated Glomerular Filt Rate 54; Glucose 128 mg/dL (75-110); Potassium 3.4 mmol/L (3.4-5.0); Sodium 137 mmol/L (137-145)
[2020-04-17] MEDS: FLUTICASONE PROPIONATE 0.05% NA SPR 16 GM BTL (*BKC) 2 SPRAY NASAL (07:59)
[2020-04-17] MEDS: hydroCHLOROthiazide 25 MG TABLET PO (07:59)
[2020-04-17] MEDS: CHOLECALCIFEROL 1,000 UNITS TABLET 1000 UNITS PO (08:00)
[2020-04-17] MEDS: LORATADINE 10 MG TABLET PO (08:00)
[2020-04-17] MEDS: atenoloL 25 MG TABLET PO (08:00)
[2020-04-17] MEDS: ZINC SULFATE 220 MG CAPSULE PO (08:00)
[2020-04-17] MEDS: FAMOTIDINE 20 MG TABLET PO ×2 (08:00→17:04)
[2020-04-17] MEDS: LOSARTAN POTASSIUM 50 MG TABLET 100 MG PO (08:00)
[2020-04-17] MEDS: ASCORBIC ACID 500 MG TABLET PO (08:00)
[2020-04-17] MEDS: guaiFENesin 600 MG/DEXTROMETHORPHAN 30 MG SR TAB 12 HR 1 TAB PO ×2 (08:00→21:36)
[2020-04-17] MEDS: DEXAMETHASONE SOD PHOS INJ 4 MG/ML VIAL 6 MG IV PUSH (08:01)
[2020-04-17] MEDS: ENOXAPARIN 40 MG/0.4 ML SYRINGE SUB-Q (08:01)
[2020-04-17 08:08] LABS: Glucose Point of Care 112 (65-105)
[2020-04-17] MEDS: POTASSIUM CHLORIDE 20 MEQ TABLET 40 MEQ PO (10:13)
[2020-04-17 12:01] LABS: Glucose Point of Care 168 (65-105)
[2020-04-17] MEDS: REMDESIVIR 200 MG/NS 250 ML 200 MG/250 ML BAG 250 MG IVPB (12:37)
--- NOTE | 2020-04-17 12:38 | PM.IMPN ---
Progress Note: A&P Assessment and Plan (1) Pneumonia due to 2019-nCoV: Code(s): U07.1 - COVID-19; J12.82 - Pneumonia due to coronavirus disease 2019 Status: Acute Assessment and Plan: The patient has been admitted to IMU, telemetry, The patient is currently on 2L of supplemental oxygen but likely does not need any supplemental oxygen as he is not desaturating. Wean off as tolerated. Continue Bronchodilators scheduled and PRN. Continue Decadron. Supportive care. droplet isolation. 04/17/20 12:38 Patient is 74-year-old male presented emergency department with complaint of shortness of breath, worse with exertion patient was diagnosed with COVID-19 on 04/10 however patient stated his symptoms were persistent for 2 weeks now and his is also positive COVID-19, patient was hypoxic in the emergency department and was placed on oxygen however currently is on room air, emergency depart patient was started on dexamethasone 03/06 added plasma, vitamin-C vitamin-D and zinc, patient is not a candidate for remdesivir as patient creatinine is elevated, will continue to monitor, the PT OT evaluate the patient, as patient remains on room air and no fever for 2-3 days we may discharge the patient home. 04/15 today patient is sitting in the chair stats doing better he is on 2 L NC, he has not had any fever since arrival, he received plasma on 04/14 and dexamethasone 04/06, vitamin-C and D and zinc, will continue to monitor, if patient remains afebrile not requiring more than 6 L of oxygen next 2-3 days will do the discharge planning, I spoke with patient's daughter and answered all her questions, patient has hyperglycemia will do the A1c to further evaluate 04/16 today patient is lying in the bed does complaint of little bit of short of breath also is requiring 3-4 L of oxygen, he denies any fever or chills he is on dexamethasone 05/04, received convalescent plasma on 04/14, and vitamin-C and D as well as zinc, patient hemoglobin A1c is 7.3 patient is on dexamethasone will closely monitor patient blood sugars, will continue to monitor the patient will have a PT OT evaluate the patient and further recommendation to follow. 04/17 today patient is lying in the bed does complaint of little bit of short of breath was requiring 3-4 L of oxygen on 04/16 however today patient is requiring 7L per NC, he denies any fever or chills he is on dexamethasone 06/04, received convalescent plasma on 04/14, he was not started on remdesivir upon arrival because his creatinine was elevated and today his creatinine is close to normal, will start remdesivir 03/01 and already on vitamin-C and D as well as zinc, patient hemoglobin A1c is 7.3 patient is on dexamethasone will closely monitor patient blood sugars, will continue to monitor the patient will have a PT OT evaluate the patient and further recommendation to follow (2) Hypokalemia: Code(s): E87.6 - Hypokalemia Status: Acute Assessment and Plan: Check BMP and magnesium now. Monitor serum potassium. Consider further replacement as needed. (3) Elevated troponin: Code(s): R77.8 - Other specified abnormalities of plasma proteins Status: Acute Assessment and Plan: Incidental troponin rise may be secondary to COVID-19. No chest pain tongiht. Trend troponin. Consider Cardiology consultation in am . (4) Thrombocytopenia: Code(s): D69.6 - Thrombocytopenia, unspecified Status: Acute Assessment and Plan: Monitor platelets, transfuse prn. (5) Type 2 diabetes mellitus: Qualifiers: Diabetes mellitus ferry terminal supervisor insulin use: without long-term use Diabetes mellitus complication status: with kidney complications Diabetes mellitus complication detail: with chronic kidney disease Chronic kidney disease stage: unspecified stage Qualified Code(s): E11.22 - Type 2 diabetes mellitus with diabetic chronic kidney disease Code(s): E11.9 - Type 2 diabetes mellitus without complication
[2020-04-17] MEDS: INSULIN ASPART (*BKC) 100 UNITS/ML SUB-Q (17:05)
[2020-04-17 17:12] LABS: Glucose Point of Care 234 (65-105)
[2020-04-17 22:16] LABS: Glucose Point of Care 168 (65-105)
[2020-04-18] VITALS (8 sets, daily range): BP systolic 120–153; BP diastolic 62–78; PULSE 59–85; RESP 16–22; TEMP 36.5–36.9; O2SAT 90–98
[2020-04-18 06:15] LABS: Hematocrit 37.3 % (42.0-52.0); Hemoglobin 12.7 g/dL (14.0-18.0); Mean Corpuscular Hemoglobin 32.6 pg (26-34); Mean Corpuscular Volume 95.6 fl (80-100); Mean Platelet Volume 8.3 fl (7.4-10.4); Platelet Count Result 245 k/mm3 (150-375); Red Cell Distribution Width 13.5 % (11.5-14.5); White Blood Count 10.6 K/mm3 (4.5-10.0)
[2020-04-18 07:55] LABS: Alanine Aminotransferase 42 U/L (4-50); Albumin Level 2.9 g/dL (3.5-5.1); Alkaline Phosphatase 42 U/L (38-126); Anion Gap 2 mmol/L (8-16); Aspartate Amino Transferase 43 U/L (17-59); Bilirubin,Total 0.9 mg/dL (0.2-1.3); Blood Urea Nitrogen 24 mg/dL (9-20); CRP 6.2 mg/dL (<1.0); Calcium 7.6 mg/dL (8.4-10.2); Carbon Dioxide 29 mmol/L (22-30); Chloride 107 mmol/L (98-107); Estimated CRCL calculation 47 ml/min; Estimated Glomerular Filt Rate 54; Glucose 105 mg/dL (75-110); Potassium 3.7 mmol/L (3.4-5.0); Sodium 138 mmol/L (137-145)
--- NOTE | 2020-04-18 07:55 | PC.NURSE ---
Pt complaining of anxiety. Called Dr Posadas to notifiy of pt complaint. New order for Xanax 0.25mg Q8 hours prn given.
[2020-04-18] MEDS: ALPRAZolam (*CRX) 0.25 MG TABLET PO (08:17)
[2020-04-18] MEDS: ALBUTEROL SULFATE (*SP) AEROSOL 1 PUFF 2 PUFF INHALATION ×2 (08:23→16:23)
[2020-04-18 09:02] LABS: D Dimer 0.92 ug/mL (<0.48)
[2020-04-18 10:37] LABS: Alveolar/Arterial O2 Gradient 225.8 mmHg; Base Excess ABG 1.9 mEq/l (+/-2.0); Fractional Inspired Oxygen 44 %; HCO3 ABG 23.9 mEq/l (22.0-26.0); Oxygen Saturation ABG 90.8 % (95.0-100.0); PCO2 ABG 30.7 mmHg (35.0-45.0); PO2 ABG 52.9 mmHg (80.0-100.0); Total Hemoglobin 15.2 g/dL (12.0-18.0)
[2020-04-18 10:38] LABS: Modified Allen's Test Pass; Site Drawn RIGHT RADIAL
[2020-04-18 10:39] LABS: Device HIGH FLOW NASAL CANN
[2020-04-18] MEDS: REMDESIVIR 100 MG/NS 250 ML 100 MG/250 ML BAG 250 MG IVPB (11:23)
[2020-04-18] MEDS: hydroCHLOROthiazide 25 MG TABLET PO (11:23)
[2020-04-18] MEDS: LOSARTAN POTASSIUM 50 MG TABLET 100 MG PO (11:23)
[2020-04-18] MEDS: guaiFENesin 600 MG/DEXTROMETHORPHAN 30 MG SR TAB 12 HR 1 TAB PO ×2 (11:23→20:57)
[2020-04-18] MEDS: ZINC SULFATE 220 MG CAPSULE PO (11:24)
[2020-04-18] MEDS: ASCORBIC ACID 500 MG TABLET PO (11:24)
[2020-04-18] MEDS: FAMOTIDINE 20 MG TABLET PO ×2 (11:24→17:32)
[2020-04-18] MEDS: atenoloL 25 MG TABLET PO (11:24)
[2020-04-18] MEDS: CHOLECALCIFEROL 1,000 UNITS TABLET 1000 UNITS PO (11:24)
[2020-04-18] MEDS: DEXAMETHASONE SOD PHOS INJ 4 MG/ML VIAL 6 MG IV PUSH (11:25)
[2020-04-18] MEDS: ENOXAPARIN 40 MG/0.4 ML SYRINGE SUB-Q ×2 (11:25→20:57)
[2020-04-18] MEDS: FLUTICASONE PROPIONATE 0.05% NA SPR 16 GM BTL (*BKC) 2 SPRAY NASAL (11:25)
[2020-04-18 11:32] LABS: Glucose Point of Care 131 (65-105)
[2020-04-18] MEDS: SODIUM CHLORIDE 0.9% IV 1,000 ML 125 ML IV CONT (11:37)
[2020-04-18 12:26] LABS: Glucose Point of Care 104 (65-105)
--- NOTE | 2020-04-18 15:09 | PM.IMPN ---
Progress Note: A&P Assessment and Plan (1) Pneumonia due to 2019-nCoV: Code(s): U07.1 - COVID-19; J12.82 - Pneumonia due to coronavirus disease 2019 Status: Acute Assessment and Plan: The patient has been admitted to IMU, telemetry, The patient is currently on 2L of supplemental oxygen but likely does not need any supplemental oxygen as he is not desaturating. Wean off as tolerated. Continue Bronchodilators scheduled and PRN. Continue Decadron. Supportive care. droplet isolation. 04/18/20 15:09 Patient is 74-year-old male presented emergency department with complaint of shortness of breath, worse with exertion patient was diagnosed with COVID-19 on 04/10 however patient stated his symptoms were persistent for 2 weeks now and his is also positive COVID-19, patient was hypoxic in the emergency department and was placed on oxygen however currently is on room air, emergency depart patient was started on dexamethasone 03/06 added plasma, vitamin-C vitamin-D and zinc, patient is not a candidate for remdesivir as patient creatinine is elevated, will continue to monitor, the PT OT evaluate the patient, as patient remains on room air and no fever for 2-3 days we may discharge the patient home. 04/15 today patient is sitting in the chair stats doing better he is on 2 L NC, he has not had any fever since arrival, he received plasma on 04/14 and dexamethasone 04/06, vitamin-C and D and zinc, will continue to monitor, if patient remains afebrile not requiring more than 6 L of oxygen next 2-3 days will do the discharge planning, I spoke with patient's daughter and answered all her questions, patient has hyperglycemia will do the A1c to further evaluate 04/16 today patient is lying in the bed does complaint of little bit of short of breath also is requiring 3-4 L of oxygen, he denies any fever or chills he is on dexamethasone 05/04, received convalescent plasma on 04/14, and vitamin-C and D as well as zinc, patient hemoglobin A1c is 7.3 patient is on dexamethasone will closely monitor patient blood sugars, will continue to monitor the patient will have a PT OT evaluate the patient and further recommendation to follow. 04/17 today patient is lying in the bed does complaint of little bit of short of breath was requiring 3-4 L of oxygen on 04/16 however today patient is requiring 7L per NC, he denies any fever or chills he is on dexamethasone 06/04, received convalescent plasma on 04/14, he was not started on remdesivir upon arrival because his creatinine was elevated and today his creatinine is close to normal, will start remdesivir /5 and already on vitamin-C and D as well as zinc, patient hemoglobin A1c is 7.3 patient is on dexamethasone will closely monitor patient blood sugars, will continue to monitor the patient will have a PT OT evaluate the patient and further recommendation to follow. 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 he denies any fever or chills he is on dexamethasone 07/04, received convalescent plasma on 04/14, he was not started on remdesivir upon arrival because his creatinine was elevated and on 04/17 his creatinine was close to normal, started remdesivir 04/01 and already on vitamin-C and D as well as zinc, patient hemoglobin A1c is 7.3 patient is on dexamethasone will closely monitor patient blood sugars, will continue to monitor the patient will have a PT OT evaluate the patient and further recommendation to follow. Spoke with patient daughter and updated. (2) Hypokalemia: Code(s): E87.6 - Hypokalemia Status: Acute Assessment and Plan: Check BMP and magnesium now. Monitor serum potassium. Consider further replacement as needed. (3) Elevated troponin: Code(s): R77.8 -
[2020-04-18 16:46] LABS: Glucose Point of Care 175 (65-105)
[2020-04-18] MEDS: MELATONIN 5 MG TABLET PO (20:57)
[2020-04-19] VITALS (12 sets, daily range): BP systolic 127–139; BP diastolic 68–82; PULSE 47–69; RESP 18–20; TEMP 36–36.7; O2SAT 91–98
[2020-04-19] MEDS: ALBUTEROL SULFATE (*SP) AEROSOL 1 PUFF 2 PUFF INHALATION ×4 (00:34→21:08)
[2020-04-19] MEDS: SODIUM CHLORIDE 0.9% IV 1,000 ML 125 ML IV CONT ×3 (05:26→16:22)
[2020-04-19 06:38] LABS: Hematocrit 36.2 % (42.0-52.0); Hemoglobin 12.6 g/dL (14.0-18.0); Mean Corpuscular HGB Conc 34.8 g/dl (32-36); Mean Corpuscular Volume 94.8 fl (80-100); Mean Platelet Volume 8.5 fl (7.4-10.4); Platelet Count Result 277 k/mm3 (150-375); Red Blood Count 3.82 M/mm3 (4.6-6.20); Red Cell Distribution Width 13.6 % (11.5-14.5); White Blood Count 9.5 K/mm3 (4.5-10.0)
[2020-04-19 06:55] LABS: Alanine Aminotransferase 42 U/L (4-50); Albumin Level 2.7 g/dL (3.5-5.1); Alkaline Phosphatase 44 U/L (38-126); Anion Gap 3 mmol/L (8-16); Aspartate Amino Transferase 32 U/L (17-59); Blood Urea Nitrogen 24 mg/dL (9-20); Calcium 7.9 mg/dL (8.4-10.2); Carbon Dioxide 27 mmol/L (22-30); Chloride 105 mmol/L (98-107); Estimated CRCL calculation 51 ml/min; Estimated Glomerular Filt Rate 59; Glucose 128 mg/dL (75-110); Potassium 3.6 mmol/L (3.4-5.0); Sodium 135 mmol/L (137-145)
[2020-04-19 06:56] LABS: CRP 14.2 mg/dL (<1.0)
[2020-04-19] MEDS: CHOLECALCIFEROL 1,000 UNITS TABLET 1000 UNITS PO (08:18)
[2020-04-19] MEDS: ASCORBIC ACID 500 MG TABLET PO (08:18)
[2020-04-19] MEDS: atenoloL 25 MG TABLET PO (08:18)
[2020-04-19] MEDS: FAMOTIDINE 20 MG TABLET PO ×2 (08:19→16:17)
[2020-04-19] MEDS: FLUTICASONE PROPIONATE 0.05% NA SPR 16 GM BTL (*BKC) 2 SPRAY NASAL (08:19)
[2020-04-19] MEDS: guaiFENesin 600 MG/DEXTROMETHORPHAN 30 MG SR TAB 12 HR 1 TAB PO ×2 (08:19→21:03)
[2020-04-19] MEDS: DEXAMETHASONE SOD PHOS INJ 4 MG/ML VIAL 6 MG IV PUSH (08:19)
[2020-04-19] MEDS: ENOXAPARIN 40 MG/0.4 ML SYRINGE SUB-Q ×2 (08:19→21:03)
[2020-04-19] MEDS: ZINC SULFATE 220 MG CAPSULE PO (08:20)
[2020-04-19] MEDS: hydroCHLOROthiazide 25 MG TABLET PO (08:20)
[2020-04-19] MEDS: LOSARTAN POTASSIUM 50 MG TABLET 100 MG PO (08:20)
[2020-04-19 08:57] LABS: Glucose Point of Care 143 (65-105)
[2020-04-19] MEDS: REMDESIVIR 100 MG/NS 250 ML 100 MG/250 ML BAG 250 MG IVPB (09:30)
[2020-04-19 13:03] LABS: Glucose Point of Care 200 (65-105)
--- NOTE | 2020-04-19 15:49 | PM.IMPN ---
Progress Note: A&P Assessment and Plan (1) Pneumonia due to 2019-nCoV: Code(s): U07.1 - COVID-19; J12.82 - Pneumonia due to coronavirus disease 2019 Status: Acute Assessment and Plan: The patient has been admitted to IMU, telemetry, The patient is currently on 2L of supplemental oxygen but likely does not need any supplemental oxygen as he is not desaturating. Wean off as tolerated. Continue Bronchodilators scheduled and PRN. Continue Decadron. Supportive care. droplet isolation. 04/19/20 15:49 Patient is 74-year-old male presented emergency department with complaint of shortness of breath, worse with exertion patient was diagnosed with COVID-19 on 04/10 however patient stated his symptoms were persistent for 2 weeks now and his is also positive COVID-19, patient was hypoxic in the emergency department and was placed on oxygen however currently is on room air, emergency depart patient was started on dexamethasone 03/06 added plasma, vitamin-C vitamin-D and zinc, patient is not a candidate for remdesivir as patient creatinine is elevated, will continue to monitor, the PT OT evaluate the patient, as patient remains on room air and no fever for 2-3 days we may discharge the patient home. 04/15 today patient is sitting in the chair stats doing better he is on 2 L NC, he has not had any fever since arrival, he received plasma on 04/14 and dexamethasone 04/06, vitamin-C and D and zinc, will continue to monitor, if patient remains afebrile not requiring more than 6 L of oxygen next 2-3 days will do the discharge planning, I spoke with patient's daughter and answered all her questions, patient has hyperglycemia will do the A1c to further evaluate 04/16 today patient is lying in the bed does complaint of little bit of short of breath also is requiring 3-4 L of oxygen, he denies any fever or chills he is on dexamethasone 05/04, received convalescent plasma on 04/14, and vitamin-C and D as well as zinc, patient hemoglobin A1c is 7.3 patient is on dexamethasone will closely monitor patient blood sugars, will continue to monitor the patient will have a PT OT evaluate the patient and further recommendation to follow. 04/17 today patient is lying in the bed does complaint of little bit of short of breath was requiring 3-4 L of oxygen on 04/16 however today patient is requiring 7L per NC, he denies any fever or chills he is on dexamethasone 06/04, received convalescent plasma on 04/14, he was not started on remdesivir upon arrival because his creatinine was elevated and today his creatinine is close to normal, will start remdesivir / and already on vitamin-C and D as well as zinc, patient hemoglobin A1c is 7.3 patient is on dexamethasone will closely monitor patient blood sugars, will continue to monitor the patient will have a PT OT evaluate the patient and further recommendation to follow. 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 he denies any fever or chills he is on dexamethasone 07/04, received convalescent plasma on 04/14, he was not started on remdesivir upon arrival because his creatinine was elevated and on 04/17 his creatinine was close to normal, started remdesivir / and already on vitamin-C and D as well as zinc, patient hemoglobin A1c is 7.3 patient is on dexamethasone will closely monitor patient blood sugars, will continue to monitor the patient will have a PT OT evaluate the patient and further recommendation to follow. Spoke with patient daughter and updated. 04/19 patient was started on Afrin that did help breathe better, patient stats he slept better with melatonin, today patient states not a short of breath, patient is requiring 6 L of oxygen, is no fever, remains clinically stable will continue to mon
[2020-04-19 18:03] LABS: Glucose Point of Care 170 (65-105)
[2020-04-19] MEDS: MELATONIN 5 MG TABLET PO (21:03)
[2020-04-19 22:37] LABS: Glucose Point of Care 171 (65-105)
[2020-04-20] VITALS (11 sets, daily range): BP systolic 130–160; BP diastolic 68–80; PULSE 43–71; RESP 18–20; TEMP 36.2–37.1; O2SAT 92–96
[2020-04-20] MEDS: SODIUM CHLORIDE 0.9% IV 1,000 ML 125 ML IV CONT ×3 (00:51→17:14)
[2020-04-20] MEDS: ALBUTEROL SULFATE (*SP) AEROSOL 1 PUFF 2 PUFF INHALATION ×4 (00:53→21:34)
[2020-04-20 06:55] LABS: Hematocrit 35.7 % (42.0-52.0); Hemoglobin 12.2 g/dL (14.0-18.0); Mean Corpuscular HGB Conc 34.2 g/dl (32-36); Mean Corpuscular Hemoglobin 32.9 pg (26-34); Mean Corpuscular Volume 96.2 fl (80-100); Mean Platelet Volume 8.9 fl (7.4-10.4); Platelet Count Result 310 k/mm3 (150-375); Red Blood Count 3.71 M/mm3 (4.6-6.20); Red Cell Distribution Width 13.4 % (11.5-14.5); White Blood Count 10.8 K/mm3 (4.5-10.0)
[2020-04-20 07:15] LABS: Alanine Aminotransferase 42 U/L (4-50); Albumin Level 2.5 g/dL (3.5-5.1); Alkaline Phosphatase 44 U/L (38-126); Anion Gap 4 mmol/L (8-16); Aspartate Amino Transferase 31 U/L (17-59); Bilirubin,Total 0.7 mg/dL (0.2-1.3); Blood Urea Nitrogen 28 mg/dL (9-20); CRP 7.6 mg/dL (<1.0); Calcium 8.3 mg/dL (8.4-10.2); Carbon Dioxide 28 mmol/L (22-30); Chloride 105 mmol/L (98-107); Estimated CRCL calculation 51 ml/min; Estimated Glomerular Filt Rate 59; Glucose 117 mg/dL (75-110); Potassium 3.5 mmol/L (3.4-5.0); Sodium 137 mmol/L (137-145)
[2020-04-20 08:35] LABS: Glucose Point of Care 106 (65-105)
[2020-04-20] MEDS: ASCORBIC ACID 500 MG TABLET PO (09:00)
[2020-04-20] MEDS: atenoloL 25 MG TABLET PO (09:01)
[2020-04-20] MEDS: DEXAMETHASONE SOD PHOS INJ 4 MG/ML VIAL 6 MG IV PUSH (09:02)
[2020-04-20] MEDS: FLUTICASONE PROPIONATE 0.05% NA SPR 16 GM BTL (*BKC) 2 SPRAY NASAL (09:02)
[2020-04-20] MEDS: CHOLECALCIFEROL 1,000 UNITS TABLET 1000 UNITS PO (09:02)
[2020-04-20] MEDS: ENOXAPARIN 40 MG/0.4 ML SYRINGE SUB-Q ×2 (09:02→21:34)
[2020-04-20] MEDS: FAMOTIDINE 20 MG TABLET PO ×2 (09:02→18:17)
[2020-04-20] MEDS: guaiFENesin 600 MG/DEXTROMETHORPHAN 30 MG SR TAB 12 HR 1 TAB PO ×2 (09:02→21:34)
[2020-04-20] MEDS: ZINC SULFATE 220 MG CAPSULE PO (09:03)
[2020-04-20] MEDS: LOSARTAN POTASSIUM 50 MG TABLET 100 MG PO (09:03)
[2020-04-20] MEDS: hydroCHLOROthiazide 25 MG TABLET PO (09:03)
[2020-04-20] MEDS: REMDESIVIR 100 MG/NS 250 ML 100 MG/250 ML BAG 250 MG IVPB (10:43)
[2020-04-20] MEDS: POTASSIUM CHLORIDE 20 MEQ TABLET 40 MEQ PO (10:43)
--- NOTE | 2020-04-20 10:54 | PCNWS ---
Weekly nutritional screen. Spoke with patient over the telephone due to COVID positive. Patient is tolerating current diet-DBCC/heart healthy with Glucerna shakes BID. Adequate [id number]% of meals. No nutritional needs at this time.
[2020-04-20 12:09] LABS: Glucose Point of Care 190 (65-105)
--- NOTE | 2020-04-20 15:10 | P.PNIM_ITS ---
Progress Note: A&P Assessment and Plan (1) Pneumonia due to 2019-nCoV: Code(s): U07.1 - COVID-19; J12.82 - Pneumonia due to coronavirus disease 2019 Status: Acute Assessment and Plan: The patient has been admitted to IMU, telemetry, The patient is currently on 2L of supplemental oxygen but likely does not need any supplemental oxygen as he is not desaturating. Wean off as tolerated. Continue Bronchodilators scheduled and PRN. Continue Decadron. Supportive care. droplet isolation. 04/20/20 15:10 Patient is 74-year-old male presented emergency department with complaint of shortness of breath, worse with exertion patient was diagnosed with COVID-19 on 04/10 however patient stated his symptoms were persistent for 2 weeks now and his is also positive COVID-19, patient was hypoxic in the emergency department and was placed on oxygen however currently is on room air, emergency depart patient was started on dexamethasone 03/06 added plasma, vitamin-C vitamin-D and zinc, patient is not a candidate for remdesivir as patient creatinine is elevated, will continue to monitor, the PT OT evaluate the patient, as patient remains on room air and no fever for 2-3 days we may discharge the patient home. 04/15 today patient is sitting in the chair stats doing better he is on 2 L NC, he has not had any fever since arrival, he received plasma on 04/14 and dexamethasone 04/06, vitamin-C and D and zinc, will continue to monitor, if patient remains afebrile not requiring more than 6 L of oxygen next 2-3 days will do the discharge planning, I spoke with patient's daughter and answered all her questions, patient has hyperglycemia will do the A1c to further evaluate 04/16 today patient is lying in the bed does complaint of little bit of short of breath also is requiring 3-4 L of oxygen, he denies any fever or chills he is on dexamethasone 05/04, received convalescent plasma on 04/14, and vitamin-C and D as well as zinc, patient hemoglobin A1c is 7.3 patient is on dexamethasone will closely monitor patient blood sugars, will continue to monitor the patient will have a PT OT evaluate the patient and further recommendation to follow. 04/17 today patient is lying in the bed does complaint of little bit of short of breath was requiring 3-4 L of oxygen on 04/16 however today patient is requiring 7L per NC, he denies any fever or chills he is on dexamethasone 06/04, received convalescent plasma on 04/14, he was not started on remdesivir upon arrival because his creatinine was elevated and today his creatinine is close to normal, will start remdesivir / and already on vitamin-C and D as well as zinc, patient hemoglobin A1c is 7.3 patient is on dexamethasone will closely monitor patient blood sugars, will continue to monitor the patient will have a PT OT evaluate the patient and further recommendation to follow. 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 he denies any fever or chills he is on dexamethasone 07/04, received convalescent plasma on 04/14, he was not started on remdesivir upon arrival because his creatinine was elevated and on 04/17 his creatinine was close to normal, started remdesivir /5 and already on vitamin-C and D as well as zinc, patient hemoglobin A1c is 7.3 patient is on dexamethasone will closely monitor patient blood sugars, will continue to monitor the patient will have a PT OT evaluate the patient and further recommendation to follow. Spoke with patient daughter and updated. 04/19 patient was started on Afrin that did hel
[2020-04-20] MEDS: INSULIN ASPART (*BKC) 100 UNITS/ML SUB-Q (17:09)
[2020-04-20 17:21] LABS: Glucose Point of Care 210 (65-105)
[2020-04-20] MEDS: MELATONIN 5 MG TABLET PO (21:34)
[2020-04-20 21:43] LABS: Glucose Point of Care 174 (65-105)
[2020-04-21] VITALS (11 sets, daily range): BP systolic 132–158; BP diastolic 67–86; PULSE 45–66; RESP 18–20; TEMP 36.2–36.9; O2SAT 92–97
[2020-04-21 06:15] LABS: Hemoglobin 12.4 g/dL (14.0-18.0); Mean Corpuscular HGB Conc 33.5 g/dl (32-36); Mean Corpuscular Hemoglobin 32.2 pg (26-34); Mean Corpuscular Volume 96.1 fl (80-100); Mean Platelet Volume 8.6 fl (7.4-10.4); Platelet Count Result 328 k/mm3 (150-375); Red Blood Count 3.85 M/mm3 (4.6-6.20); Red Cell Distribution Width 13.5 % (11.5-14.5); White Blood Count 10.9 K/mm3 (4.5-10.0)
[2020-04-21] MEDS: SODIUM CHLORIDE 0.9% IV 1,000 ML 125 ML IV CONT (07:36)
[2020-04-21 07:45] LABS: Glucose Point of Care 112 (65-105)
[2020-04-21] MEDS: ASCORBIC ACID 500 MG TABLET PO (08:01)
[2020-04-21] MEDS: ALBUTEROL SULFATE (*SP) AEROSOL 1 PUFF 2 PUFF INHALATION ×3 (08:01→21:32)
[2020-04-21] MEDS: DEXAMETHASONE SOD PHOS INJ 4 MG/ML VIAL 6 MG IV PUSH (08:01)
[2020-04-21] MEDS: ENOXAPARIN 40 MG/0.4 ML SYRINGE SUB-Q ×2 (08:01→21:31)
[2020-04-21] MEDS: guaiFENesin 600 MG/DEXTROMETHORPHAN 30 MG SR TAB 12 HR 1 TAB PO ×2 (08:02→21:31)
[2020-04-21] MEDS: ZINC SULFATE 220 MG CAPSULE PO (08:02)
[2020-04-21] MEDS: FAMOTIDINE 20 MG TABLET PO ×2 (08:02→16:22)
[2020-04-21] MEDS: FLUTICASONE PROPIONATE 0.05% NA SPR 16 GM BTL (*BKC) 2 SPRAY NASAL (08:02)
[2020-04-21] MEDS: CHOLECALCIFEROL 1,000 UNITS TABLET 1000 UNITS PO (08:02)
[2020-04-21] MEDS: hydroCHLOROthiazide 25 MG TABLET PO (08:02)
[2020-04-21] MEDS: LOSARTAN POTASSIUM 50 MG TABLET 100 MG PO (08:02)
[2020-04-21] MEDS: atenoloL 25 MG TABLET PO (08:03)
[2020-04-21 08:25] LABS: Alanine Aminotransferase 49 U/L (4-50); Albumin Level 2.7 g/dL (3.5-5.1); Alkaline Phosphatase 48 U/L (38-126); Anion Gap 1 mmol/L (8-16); Aspartate Amino Transferase 37 U/L (17-59); Bilirubin,Total 0.6 mg/dL (0.2-1.3); Blood Urea Nitrogen 28 mg/dL (9-20); Calcium 8.6 mg/dL (8.4-10.2); Carbon Dioxide 31 mmol/L (22-30); Chloride 105 mmol/L (98-107); Estimated CRCL calculation 44 ml/min; Estimated Glomerular Filt Rate 49; Glucose 117 mg/dL (75-110); Potassium 4.2 mmol/L (3.4-5.0); Sodium 137 mmol/L (137-145)
[2020-04-21] MEDS: REMDESIVIR 100 MG/NS 250 ML 100 MG/250 ML BAG 250 MG IVPB (09:47)
[2020-04-21 11:58] LABS: Glucose Point of Care 187 (65-105)
--- NOTE | 2020-04-21 15:43 | PM.IMPN ---
Progress Note: A&P Assessment and Plan (1) Pneumonia due to 2019-nCoV: Code(s): U07.1 - COVID-19; J12.82 - Pneumonia due to coronavirus disease 2018 Status: Acute Assessment and Plan: Patient is doing well and on 1 L -COVID-19 positive April 10, 2020 -will do home oxygen evaluation tomorrow -he will finish Remdesivir today -continue Decadron and Lovenox -hopefully home tomorrow (2) Hypokalemia: Code(s): E87.6 - Hypokalemia Status: Acute Assessment and Plan: Resolved, likely due to decreased appetite (3) Elevated troponin: Code(s): R77.8 - Other specified abnormalities of plasma proteins Status: Acute Assessment and Plan: Only 1 troponin positive, either from COVID or possibly a lab error -no chest pain -monitor for more chest pain overnight, no further workup indicated at this time (4) Thrombocytopenia: Code(s): D69.6 - Thrombocytopenia, unspecified Status: Acute Assessment and Plan: Resolved (5) Type 2 diabetes mellitus: Qualifiers: Diabetes mellitus group home insulin use: without group home use Diabetes mellitus complication status: with kidney complications Diabetes mellitus complication detail: with chronic kidney disease Chronic kidney disease stage: unspecified stage Qualified Code(s): E11.22 - Type 2 diabetes mellitus with diabetic chronic kidney disease Code(s): E11.9 - Type 2 diabetes mellitus without complications Status: Chronic Assessment and Plan: Last glucose 187 -continue sliding scale insulin -He is diet controlled at home (6) Hypertension: Qualifiers: Hypertension type: essential hypertension Qualified Code(s): I10 - Essential (primary) hypertension Code(s): I10 - Essential (primary) hypertension Status: Chronic Assessment and Plan: Last bp 132/73 -continue atenolol, hctz, and losartan (7) CKD (chronic kidney disease): Qualifiers: Chronic kidney disease stage: stage 3 (moderate) Qualified Code(s): N18.3 - Chronic kidney disease, stage 3 (moderate) Code(s): N18.9 - Chronic kidney disease, unspecified Status: Chronic Assessment and Plan: Renal function appears to be at baseline. Time Spent With Patient Time with patient: 25 - 35 minutes Subjective Date/time seen: 04/21/20 15:43 Interval history: Pt is a 74-year-old male here for COVID-19. Patient was seen today and states he is feeling great. He has no shortness of breath when walking or at rest. He is eating and drinking well. Pt denies nausea, vomiting, fevers, chills, constipation, diarrhea, chest pain, sob, or abdominal pain. He is ready to go home Review of Systems Review of Systems: All systems reviewed & are unremarkable except as noted in HPI and below Exam Narrative: Exam Narrative: General: Well developed well nourished patient in NAD HEENT: normocephalic Neck: supple Neuro: Alert and oriented x4 CV:RRR Resp:CTA Abd: Soft, non distended. No pain to palpation. Positive bowel sounds Extremities: No swelling, erythema, or pain to palpation. Objective Data Vital Signs Vital Signs: Vital Signs - 24 hr 04/20/20 16:00 04/20/20 17:16 04/20/20 20:00 Temperature 98.7 F 97.7 F Pulse Rate 56 L 71 Respiratory Rate 18 20 Blood Pressure 137/80 134/69 Pulse Oximetry 96 92 94 04/20/20 21:00 04/21/20 00:00 04/21/20 04:00 Temperature Pulse Rate 47 L 45 L Respiratory Rate 20 Blood Pressure Pulse Oximetry 94 04/21/20 05:00 04/21/20 08:00 04/21/20 08:03 Temperature 97.6 F Pulse Rate 48 L 56 L 54 L Respiratory Rate 20 Blood Pressure 158/86 H Pulse Oximetry 97 92 04/21/20 08:05 04/21/20 12:00 04/21/20 14:42 Temperature 98.4 F Pulse Rate 66 65 Respiratory Rate 18 Blood Pressure 132/73 Pulse Oximetry 92 95 Intake/Output Intake/Output: Intake & Output
[2020-04-21 16:45] LABS: Glucose Point of Care 285 (65-105)
[2020-04-21] MEDS: INSULIN ASPART (*BKC) 100 UNITS/ML SUB-Q (17:10)
[2020-04-21] MEDS: MELATONIN 5 MG TABLET PO (21:31)
[2020-04-21 21:47] LABS: Glucose Point of Care 177 (65-105)
[2020-04-22] VITALS (12 sets, daily range): BP systolic 132–147; BP diastolic 70–72; PULSE 43–101; RESP 16–20; TEMP 36.1–36.7; O2SAT 87–96
[2020-04-22 06:09] LABS: Hematocrit 38.1 % (42.0-52.0); Hemoglobin 12.8 g/dL (14.0-18.0); Mean Corpuscular HGB Conc 33.6 g/dl (32-36); Mean Corpuscular Hemoglobin 31.8 pg (26-34); Mean Corpuscular Volume 94.5 fl (80-100); Mean Platelet Volume 8.5 fl (7.4-10.4); Platelet Count Result 337 k/mm3 (150-375); Red Blood Count 4.03 M/mm3 (4.6-6.20); Red Cell Distribution Width 13.3 % (11.5-14.5); White Blood Count 12.1 K/mm3 (4.5-10.0)
[2020-04-22 06:31] LABS: Alanine Aminotransferase 54 U/L (4-50); Albumin Level 2.8 g/dL (3.5-5.1); Alkaline Phosphatase 52 U/L (38-126); Anion Gap 1 mmol/L (8-16); Aspartate Amino Transferase 36 U/L (17-59); Bilirubin,Total 0.7 mg/dL (0.2-1.3); Blood Urea Nitrogen 25 mg/dL (9-20); CRP 3.1 mg/dL (<1.0); Calcium 8.8 mg/dL (8.4-10.2); Carbon Dioxide 34 mmol/L (22-30); Chloride 101 mmol/L (98-107); Estimated CRCL calculation 44 ml/min; Estimated Glomerular Filt Rate 49; Glucose 119 mg/dL (75-110); Magnesium 1.7 mg/dL (1.6-2.3); Potassium 3.8 mmol/L (3.4-5.0); Sodium 136 mmol/L (137-145)
[2020-04-22 07:54] LABS: Glucose Point of Care 111 (65-105)
[2020-04-22] MEDS: hydroCHLOROthiazide 25 MG TABLET PO (08:27)
[2020-04-22] MEDS: ZINC SULFATE 220 MG CAPSULE PO (08:27)
[2020-04-22] MEDS: LORATADINE 10 MG TABLET PO (08:27)
[2020-04-22] MEDS: ASCORBIC ACID 500 MG TABLET PO (08:27)
[2020-04-22] MEDS: LOSARTAN POTASSIUM 50 MG TABLET 100 MG PO (08:27)
[2020-04-22] MEDS: guaiFENesin 600 MG/DEXTROMETHORPHAN 30 MG SR TAB 12 HR 1 TAB PO (08:27)
[2020-04-22] MEDS: atenoloL 25 MG TABLET PO (08:28)
[2020-04-22] MEDS: FAMOTIDINE 20 MG TABLET PO (08:29)
[2020-04-22] MEDS: FLUTICASONE PROPIONATE 0.05% NA SPR 16 GM BTL (*BKC) 2 SPRAY NASAL (08:29)
[2020-04-22] MEDS: ENOXAPARIN 40 MG/0.4 ML SYRINGE SUB-Q (08:29)
[2020-04-22] MEDS: CHOLECALCIFEROL 1,000 UNITS TABLET 1000 UNITS PO (08:29)
[2020-04-22] MEDS: DEXAMETHASONE SOD PHOS INJ 4 MG/ML VIAL 6 MG IV PUSH (08:30)
[2020-04-22] MEDS: ALBUTEROL SULFATE (*SP) AEROSOL 1 PUFF 2 PUFF INHALATION ×2 (08:45→13:42)
[2020-04-22 11:54] LABS: Glucose Point of Care 221 (65-105)
--- NOTE | 2020-04-22 12:16 | PM.DS ---
DS: Admitting Diagnosis Admitting Diagnosis Admitting Diagnosis: Shortness of breath DS: Discharge Diagnosis Discharge Diagnosis (1) Pneumonia due to 2019-nCoV: Code(s): U07.1 - COVID-19; J12.82 - Pneumonia due to coronavirus disease 2019 Status: Acute Assessment and Plan: COVID-19 positive April 10, 2020. Patient admitted on 04/13 for shortness of breath. Patient treated with Remdesivir and Decadron. Patient was on HFNC at one point but now doing well on 1 Liter. Home oxygen evaluation showing he needs 1L for home. (2) Hypokalemia: Code(s): E87.6 - Hypokalemia Status: Acute Assessment and Plan: Potassium 2.7 and was replaced. Repeat values remained normal. (3) Elevated troponin: Code(s): R77.8 - Other specified abnormalities of plasma proteins Status: Acute Assessment and Plan: Troponin normal on 04/10/20 when he was in ED initially and up to 0.062 on admission with repeat was normal. Either from COVID or possibly a lab error. EKG reviewed and showing similar findings to 04/10 EKG. No further workup was pursued. (4) Thrombocytopenia: Code(s): D69.6 - Thrombocytopenia, unspecified Status: Acute Assessment and Plan: Plt count 120K in ED on 04/10/20. Related to COVID. Resolved. (5) Type 2 diabetes mellitus: Qualifiers: Diabetes mellitus longterm insulin use: without longterm use Diabetes mellitus complication status: with kidney complications Diabetes mellitus complication detail: with chronic kidney disease Chronic kidney disease stage: unspecified stage Qualified Code(s): E11.22 - Type 2 diabetes mellitus with diabetic chronic kidney disease Code(s): E11.9 - Type 2 diabetes mellitus without complications Status: Chronic Assessment and Plan: The patient's blood glucose was monitored closely. Glucose elevated at times probably related to the steroids. Monitored with Accu[employer]ks covering with sliding scale. Hypoglycemia protocol was available as needed. He is diet controlled at home (6) Hypertension: Qualifiers: Hypertension type: essential hypertension Qualified Code(s): I10 - Essential (primary) hypertension Code(s): I10 - Essential (primary) hypertension Status: Chronic Assessment and Plan: Patient's blood pressure was monitored closely. Blood pressure remained well controlled. We continued his home medications. (7) CKD (chronic kidney disease): Qualifiers: Chronic kidney disease stage: stage 3 (moderate) Qualified Code(s): N18.3 - Chronic kidney disease, stage 3 (moderate) Code(s): N18.9 - Chronic kidney disease, unspecified Status: Chronic Assessment and Plan: Cr 1.8 on admisison. Cr ranged from 1.2-1.8 while hospitalized. [place] patient at baseline. DS: Summary Hospital Course Reason for hospitalization: 74 year old male with hypertension, CKD and recently diagnosed with COVID here for shortness of breath. Patient was symptomatic for about 2 weeks prior to being tested positive for COVID on 04/10/2020. Please see H&P for details. Hospital Course: Please see above for details of hospital course. Status at Discharge Cognitive/behavioral status at discharge: Stable. Time Spent with Patient Time attestation: Total time spent providing and/or coordinating discharge services: 38 minutes. Time spent: Greater than 30 minutes Exam Narrative: Exam Narrative: Patient denies shortness of breath or dyspnea on exertion. He has been up walking in the room. No chest pain or abdominal pain AF 96.9 147/72 55 20 90% 1L Gen - NARD Chest - few basilar rhonchi o/w clear CV - RRR S1/S2; Tele showing bradycardia at night with occasional PVCs Abd - Soft, NT/ND, Positive BS Ext - No pedal edema Psych - Nml mood and affect Skin - Warm and dry DS: Data Data Completed and Pending Labs on day of discharge: Labs fr
--- NOTE | 2020-04-22 13:03 | HOMEO2EVAL ---
Home Oxygen Evaluation RC: Home Oxygen (O2) Evaluation Start: 04/22/20 08:00 Freq: ONCE Status: Active Protocol: RPE Activity Type Activity Date Activity User E-Sign Co-Sign Detail Recorded Client Recorded Date Recorded By Document 04/22/20 11:00 KIMBER [email or web address] 04/22/20 13:03 KIMBER Document 04/22/20 11:02 KIMBER [email or web address] 04/22/20 13:03 KIMBER Document 04/22/20 11:05 KIMBER [email or web address] 04/22/20 13:03 KIMBER Document 04/22/20 11:15 KIMBER [email or web address] 04/22/20 13:03 KIMBER 04/22/20 04/22/20 04/22/20 11:00 11:02 11:05 Home O2 Evaluation Test Phase Resting Resting Exercise Oxygen Delivery Room Air Nasal Cannula Nasal Cannula Oxygen Flow Rate (L/min) 1 1 Pulse Oximetry (90-100 %) 87 L 90 89 L Pulse Rate (60-100 beats/min) 80 101 H Home Oxygen Evaluation Comments Treatment Charges O2 Evaluation - Inpatient 04/22/20 11:15 Home O2 Evaluation Test Phase Resting Oxygen Delivery Nasal Cannula Oxygen Flow Rate (L/min) 1 Pulse Oximetry (90-100 %) 91 Pulse Rate (60-100 beats/min) 90 Home Oxygen Evaluation Comments PT REQUIRES 1 L AT REST AND WITH EXERTION Treatment Charges
--- NOTE | 2020-04-22 13:08 | PCRCNOTE ---
HOME O2 EVAL DONE, PT REQUIRES 1 L AT REST AND WITH EXERTION. SET UP WITH [facility]. [facility] IS IN ROOM FOR D/C. PT HAS BEEN INSTRUCTED TO CALL # ON [facility] ([facility]) ONCE HE IS HOME. PT UNDERSTANDS. RN NOTIFIED.
== END 2020-04-22 16:10 | disposition home or self-care (01) | DRG 177 ==
LOC: ANHED 14:28 → ANHICU 15:17 → ANH3MEDSUR 04-15 13:57
PROVIDERS: Emergency Medicine; Family Medicine; Nurse Practitioner; Physician Assistant; Admitting Provider Internal Medicine; Emergency Provider Emergency Medicine; PCP Internal Medicine; Visit Provider Family Medicine
DX: U07.1 COVID-19 (principal); J12.82 Pneumonia due to coronavirus disease 2019; E87.6 Hypokalemia; D69.59 Other secondary thrombocytopenia; E11.22 Type 2 diabetes mellitus with diabetic chronic kidney disease; N18.30 Chronic kidney disease, stage 3 unspecified; Z87.891 Personal history of nicotine dependence
CPT/HCPCS: 36415; 36430; 36600; 71045; 80048; 80053; 81001; 82805; 82948; 83036; 83605; 83735; 83880; 84484; 85025; 85027; 85380; 85610; 85730; 86140; 86900; 86901; 87081; 87804; 87880; 93005; 93970; 94618; 94640; 96365; 96366; 96375; 97161; 97165; 99283; 99285; A9270; C9803; G0378; J1100; J1650; J1815; J3480; J7030; J7050; P9059; U0003; U0005

== ENCOUNTER 2020-06-02 12:41 | Outpatient (CLI) | payer MEDICARE, SELFPAY ==
--- NOTE | ~2020-06-02 | CT_ITS ---
EXAMINATION: CTA chest PE protocol DATE: 06/02/2020 13:08 INDICATION: Chest pain. COVID-19 positive on 04/10/20. TECHNIQUE: Computed tomography angiography (CTA) of the chest was performed with 100 mL Omnipaque-350 intravenous contrast timed to evaluate the pulmonary arteries. Coronal maximum intensity projection 3D-reconstructions were created by the technologist. Automated exposure control and iterative reconst ruction technique were employed. The dose-length product was 438.26 mGy-cm. COMPARISON: chest single view 04/13/20, 04/10/20 FINDINGS: There is mild emphysema. There is bronchiectasis in the inferior lungs. There are scattered groundglass opacities in all lobes. A calcified right lung nodule and calcified mediastinal lymph no de consistent with old granulomatous disease. No pleural effusion. The heart size is normal. There is no pulmonary embolus. There is mild left hilar lymphadenopathy, likely reactive. There is diffuse he patic steatosis. There are gallstones in the gallbladder, which is contracted. There is a 4.1 cm cyst in right kidney. There is mild thoracic spondylosis. IMPRESSION: 1. No pulmonary embolus. 2. 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 3. Mild emphysema. Bronchiectasis in the inferior lungs. 4. Mild left hilar lymphadenopathy, likely reactive. Reviewed, dictated and finalized at location A. IMPRESSION: 1. No pulmonary embolus. 2. 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 3. Mild emphysema. Bronchiectasis in the inferior lungs. 4. Mild left hilar lymphadenopathy, likely reactive.
[2020-06-02 13:04] LABS: Estimated Glomerular Filt Rate 42
[2020-06-02 13:38] LABS: Basophils Absolute Auto 0.1 K/mm3 (0.0-0.1); Basophils Percent Auto 0.8 % (0.2-1.2); Eosinophils Absolute Auto 0.4 K/mm3 (0-0.3); Hematocrit 41.4 % (42.0-52.0); Hemoglobin 14.6 g/dL (14.0-18.0); Immature Granulocyte Absolute 0.05 K/mm3 (0.00-0.031); Immature Granulocyte Percent A 0.5 % (0-0.5); Lymphocytes Absolute Auto 1.84 K/mm3 (0.9-3.2); Lymphocytes Percent Auto 17.2 % (18.3-44.2); Mean Corpuscular HGB Conc 35.3 g/dl (32-36); Mean Corpuscular Hemoglobin 32.2 pg (26-34); Mean Corpuscular Volume 91.4 fl (80-100); Mean Platelet Volume 8.6 fl (7.4-10.4); Monocytes Absolute Auto 0.7 K/mm3 (0.1-0.6); Monocytes Percent Auto 6.6 % (2.6-8.5); Neutrophils Absolute Auto 7.6 K/mm3 (1.3-6.7); Neutrophils Percent Auto 70.9 % (45.5-73.1); Platelet Count Result 198 k/mm3 (150-375); Red Blood Count 4.53 M/mm3 (4.6-6.20); Red Cell Distribution Width 14.4 % (11.5-14.5); White Blood Count 10.7 K/mm3 (4.5-10.0)
[2020-06-02 13:55] LABS: Alanine Aminotransferase 28 U/L (4-50); Albumin Level 4.2 g/dL (3.5-5.1); Alkaline Phosphatase 58 U/L (38-126); Anion Gap 6 mmol/L (8-16); Aspartate Amino Transferase 29 U/L (17-59); Bilirubin,Total 1.6 mg/dL (0.2-1.3); Blood Urea Nitrogen 20 mg/dL (9-20); Carbon Dioxide 33 mmol/L (22-30); Chloride 97 mmol/L (98-107); Estimated Glomerular Filt Rate 42; Glucose 124 mg/dL (75-110); Potassium 3.3 mmol/L (3.4-5.0); Sodium 136 mmol/L (137-145)
[2020-06-02 14:04] LABS: Hemoglobin A1C 6.6 % (<5.7)
[2020-06-02 14:07] LABS: Creatinine Urine 161.5 mg/dL
[2020-06-02 14:12] LABS: MALB Creatinine Ratio 8.9 mg/g (0-30); Microalbumin Urine Random 14.4 mg/L (0-16.7)
== END 2020-06-02 12:42 | disposition home or self-care (01) ==
PROVIDERS: PCP Internal Medicine; Visit Provider Nurse Practitioner
DX: R79.89 Other specified abnormal findings of blood chemistry (principal); R07.9 Chest pain, unspecified; I10 Essential (primary) hypertension; E11.22 Type 2 diabetes mellitus with diabetic chronic kidney disease; R91.8 Other nonspecific abnormal finding of lung field; J43.9 Emphysema, unspecified
CPT/HCPCS: 71275; 80053; 82043; 83036; 85025; Q9967

== ENCOUNTER 2022-02-05 11:00 | Outpatient (CLI) | payer MEDICARE, SELFPAY ==
[2022-02-05 18:51] LABS: Hemoglobin A1C 6.6 % (<5.7)
[2022-02-05 18:56] LABS: Alanine Aminotransferase 30 U/L (6-50); Albumin Level 4.4 g/dL (3.5-5.1); Alkaline Phosphatase 75 U/L (38-126); Anion Gap 5 mmol/L (8-16); Aspartate Amino Transferase 34 U/L (17-59); Blood Urea Nitrogen 20 mg/dL (9-20); Carbon Dioxide 36 mmol/L (22-30); Chloride 97 mmol/L (98-107); Cholesterol 173 mg/dL (0-200); Estimated Glomerular Filt Rate 42; Glucose 143 mg/dL (65-110); HDL Direct 35 mg/dL; Potassium 3.4 mmol/L (3.4-5.0); Sodium 138 mmol/L (137-145); Triglycerides 219 mg/dL (<150)
[2022-02-05 18:59] LABS: Hematocrit 49.7 % (42.0-52.0); Hemoglobin 16.6 g/dL (14.0-18.0); Mean Corpuscular HGB Conc 33.4 g/dl (32-36); Mean Corpuscular Hemoglobin 31.3 pg (26-34); Mean Corpuscular Volume 93.6 fl (80-100); Mean Platelet Volume 8.9 fl (7.4-10.4); Platelet Count Result 227 k/mm3 (150-375); Red Blood Count 5.31 M/mm3 (4.6-6.20); White Blood Count 9.4 K/mm3 (4.5-10.0)
[2022-02-05 19:06] LABS: LDL Cholesterol Direct 85 mg/dL
== END 2022-02-05 11:01 | disposition home or self-care (01) ==
LOC: ANHGOSHLAB 11:05
PROVIDERS: PCP Internal Medicine; Visit Provider Internal Medicine
DX: E11.22 Type 2 diabetes mellitus with diabetic chronic kidney disease (principal)
CPT/HCPCS: 36415; 80053; 80061; 83036; 85027

== ENCOUNTER 2022-08-13 10:54 | Outpatient (CLI) | payer MEDICARE, SELFPAY ==
[2022-08-13 14:20] LABS: Basophils Absolute Auto 0.1 K/mm3 (0.0-0.1); Basophils Percent Auto 0.8 % (0.2-1.2); Eosinophils Absolute Auto 0.3 K/mm3 (0-0.3); Eosinophils Percent Auto 3.1 % (0-4.4); Hematocrit 45.4 % (42.0-52.0); Hemoglobin 15.6 g/dL (14.0-18.0); Immature Granulocyte Absolute 0.05 K/mm3 (0.00-0.031); Immature Granulocyte Percent A 0.5 % (0-0.5); Lymphocytes Absolute Auto 1.53 K/mm3 (0.9-3.2); Lymphocytes Percent Auto 15.3 % (18.3-44.2); Mean Corpuscular HGB Conc 34.4 g/dl (32-36); Mean Corpuscular Hemoglobin 31.9 pg (26-34); Mean Corpuscular Volume 92.8 fl (80-100); Mean Platelet Volume 9.2 fl (7.4-10.4); Monocytes Absolute Auto 0.8 K/mm3 (0.1-0.6); Monocytes Percent Auto 7.6 % (2.6-8.5); Neutrophils Absolute Auto 7.3 K/mm3 (1.3-6.7); Neutrophils Percent Auto 72.7 % (45.5-73.1); Platelet Count Result 205 k/mm3 (150-375); Red Blood Count 4.89 M/mm3 (4.6-6.20); Red Cell Distribution Width 13.4 % (11.5-14.5)
[2022-08-13 15:49] LABS: Alanine Aminotransferase 52 U/L (6-50); Albumin Level 3.9 g/dL (3.5-5.1); Alkaline Phosphatase 58 U/L (38-126); Anion Gap 4 mmol/L (8-16); Aspartate Amino Transferase 39 U/L (17-59); Bilirubin,Total 1.4 mg/dL (0.2-1.3); Blood Urea Nitrogen 27 mg/dL (9-20); Calcium 8.9 mg/dL (8.4-10.2); Carbon Dioxide 38 mmol/L (22-30); Chloride 95 mmol/L (98-107); Cholesterol 144 mg/dL (0-200); Estimated Glomerular Filt Rate 39; Glucose 146 mg/dL (65-110); HDL Direct 29 mg/dL; Sodium 137 mmol/L (137-145); Triglycerides 358 mg/dL (<150)
[2022-08-13 16:00] LABS: LDL Cholesterol Direct 68 mg/dL
[2022-08-13 16:37] LABS: Hemoglobin A1C 6.9 % (<5.7)
== END 2022-08-13 10:55 | disposition home or self-care (01) ==
LOC: ANHGOSHLAB 10:55
PROVIDERS: PCP Internal Medicine; Visit Provider Internal Medicine
DX: E11.22 Type 2 diabetes mellitus with diabetic chronic kidney disease (principal); N18.9 Chronic kidney disease, unspecified; I12.9 Hypertensive chronic kidney disease with stage 1 through stage 4 chronic kidney disease, or unspecified chronic kidney disease
CPT/HCPCS: 36415; 80053; 80061; 83036; 85025

== ENCOUNTER → 2022-08-13 11:11 | Outpatient (CLI) | payer MEDICARE, SELFPAY ==
--- NOTE | ~2022-08-13 | XR_ITS ---
XR shoulder RT min 2V 08/13/2022 11:26 Indication: Right shoulder pain Procedure: 4 views right shoulder Comparison: No prior studies for comparison. Findings: There is anatomic alignment. Mild polyarticular osteoarthritis of the shoulder. No acute fr acture or traumatic malalignment. No significant soft tissue abnormality. No foreign bodies. Impression: 1: Mild polyarticular osteoarthritis of the right shoulder. Reviewed, dictated and finalized at location [] Impression: 1: Mild polyarticular osteoarthritis of the right shoulder.
== END ==
PROVIDERS: PCP Internal Medicine; Visit Provider Internal Medicine
DX: M25.511 Pain in right shoulder (principal); M15.9 Polyosteoarthritis, unspecified
CPT/HCPCS: 73030